=== PATIENT | male | born 1975 | race Caucasian/White ===

== ENCOUNTER 2016-10-18 14:34 | Emergency (ER) | payer OTHER ==
[2016-10-18 14:58] VITALS: BP 157/71; PULSE 62; RESP 18; TEMP 98.5
--- NOTE | 2016-10-18 15:25 | ED ---
General Adult HPI - General Chief complaint: Recheck/Abnormal Lab/Rx Stated complaint: Sutures bleeding Time Seen by Provider: 10/18/16 14:59 Source: patient, RN notes reviewed Mode of arrival: ambulatory Limitations: no limitations - History of Present Illness Initial comments: Patient 41-year-old male who presents emergency room today needing a reevaluation of a surgery to the left forearm. He does admit that he had a fistula for dialysis in this arm that was recently removed just 2 days ago through [facility]. He states that they're worried about possible infection at the time. He states he did go to [facility] yesterday to have the site checked because there was some bleeding coming from one of the incisions. He states they did talk to the surgeon and checked him there eventually sending him home to follow back up with the surgeon. Patient states that he woke up this morning and noticed that there was some blood on the gauze that was wrapped up over the area. There is a total of 4 incisions any believes it is coming from the one most medial and proximal. He states he believes he was made hit this or rubbed it on something when he was sleeping. Patient states is not bleeding currently. He denies any other change of the wound. Denies any change in the color or size. Denies any change in pain. Denies any other complaints. Patient denies any recent fever, chills, shortness of breath, chest pain, back pain, abdominal pain, nausea or vomiting, numbness or tingling, dysuria or hematuria, constipation or diarrhea, headaches or visual changes, or any other complaints. - Related Data Allergies Allergy/AdvReac Type Severity Reaction Status Date / Time prochlorperazine Allergy Unknown Verified 10/18/16 14:59 [From Compazine] Childhood Sulfa (Sulfonamide Allergy Unknown Verified 10/18/16 14:59 Antibiotics) Childhood Review of Systems ROS Statement: Those systems with pertinent positive or pertinent negative responses have been documented in the HPI. ROS Other: All systems not noted in ROS Statement are negative. Past Medical History Past Medical History: Renal Disease Additional Past Medical History / Comment(s): colitis History of Any Multi-Drug Resistant Organisms: None Reported Additional Past Surgical History / Comment(s): fistula for dialysis/ removed kidney transplant Past Psychological History: Depression Smoking Status: Current every day smoker Past Alcohol Use History: None Reported, Occasional Past Drug Use History: None Reported General Exam - General Exam Comments Initial Comments: General: The patient is awake and alert, in no distress, and does not appear acutely ill. Eye: Pupils are equal, round and reactive to light, extra-ocular movements are intact. No nystagmus. There is normal conjunctiva bilaterally. No signs of icterus. Ears, nose, mouth and throat: There are moist mucous membranes and no oral lesions. Neck: The neck is supple, there is no tenderness or JVD. Cardiovascular: There is a regular rate and rhythm. No murmur, rub or gallop is appreciated. Respiratory: Lungs are clear to auscultation, respirations are non-labored, breath sounds are equal. No wheezes, stridor, rales, or rhonchi. Musculoskeletal: Normal ROM, no tenderness. Strength 5/5. Sensation intact. Pulses equal bilaterally 2+. Neurological: A&O x 3. CN II-XII intact, There are no obvious motor or sensory deficits. Coordination appears grossly intact. Speech is normal. Skin: Patient has had 4 incisions to the volar aspect of the left arm. All appear to be healing well there is no redness or erythema no sign of infection. There is no active bleeding. There was some dry blood which was cleaned with saline here. Psychiatric: Cooperative, appropriate mood & affect, normal judgment. Limitations: no limitations Course Vital Signs 10/18/16 14:52 Temperature 98.5 F Pulse Rate 62 Respiratory 18 Rate Blood Pressure 157/71 O2 Sat by Pulse 99 Oximetry Medical Decision Making - Medical Decision Making Patient denies any other changes other than some bleeding that occurred overnight. There is no active bleeding at this time. There is no color change to the incision sites. Patient denies any change in pain. His vitals are stable. At this time patient will be discharged home and advised to follow-up with surgeon tomorrow. Advised return here to emergency room for symptoms increase or worsen or for any other concerns. Disposition Clinical Impression: Postop check Disposition: HOME SELF-CARE Condition: Good Instructions: Care For Your Stitches (ED) Additional Instructions: Please follow-up with your surgeon over the next 1-2 days. Please return to emergency room if any symptoms increase worsen or for any other concerns as discussed. Referrals: Andrew Norwood MD [Primary Care Provider] - 1-2 days Time of Disposition: 15:24
== END 2016-10-18 15:35 | disposition home or self-care (01) ==
LOC: EC 14:34
DX: Z48.01 Encounter for change or removal of surgical wound dressing (principal); F17.200 Nicotine dependence, unspecified, uncomplicated; Z88.8 Allergy status to other drugs, medicaments and biological substances; Z88.2 Allergy status to sulfonamides
CPT/HCPCS: 99283

== ENCOUNTER 2016-12-10 14:47 | Emergency (ER) | payer OTHER ==
[2016-12-10 15:05] VITALS: BP 158/78; PULSE 66; RESP 20; TEMP 99
--- NOTE | 2016-12-10 15:47 | ED ---
General Adult HPI - General Chief complaint: Skin/Abscess/Foreign Body Stated complaint: Rash Time Seen by Provider: 12/10/16 15:15 Source: patient Mode of arrival: ambulatory Limitations: no limitations - History of Present Illness Initial comments: This is a 41-year-old male who presents to emergency department today with complaint of rash. Patient states a blister developed in his mouth last week. He was seen by a provider 2 days ago who prescribed him Acyclovir, Keflex, and Nystatin. Patient states the rash has been getting worse and the medications don't seem to be helping. It has now spread to his chin and right side of the face. He reports the entire right side of his face is painful. Denies fever, chills, chest pain, shortness of breath, abdominal pain, nausea, vomiting, dysuria, hematuria, numbess, tingling, headache or vision changes. - Related Data Home Medications Medication Instructions Recorded Confirmed Albuterol Inhaler [Ventolin Hfa 2 puff INHALATION RT-Q6H PRN 10/18/16 10/18/16 Inhaler] Aspirin EC [Ecotrin Low Dose] 81 mg PO DAILY 10/18/16 10/18/16 Atenolol [Tenormin] 50 mg PO DAILY 10/18/16 10/18/16 Diazepam [Valium] 5 mg PO DAILY 10/18/16 10/18/16 HYDROcodone/APAP 5-325MG [[place] 1 tab PO Q6HR PRN 10/18/16 10/18/16 5-325] Loratadine [Claritin] 10 mg PO DAILY 10/18/16 10/18/16 Magnesium Oxide [Mag-Ox] 400 mg PO BID 10/18/16 10/18/16 Mometasone/Formoterol [Dulera 200 1 puff INHALATION RT-BID 10/18/16 10/18/16 Mcg/5 Mcg Inhaler] Multivitamins, Thera [Multivitamin 1 tab PO DAILY 10/18/16 10/18/16 (formulary)] Mycophenolate Sodium Dr [Myfortic] 360 mg PO TID 10/18/16 10/18/16 Omeprazole 40 mg PO DAILY 10/18/16 10/18/16 Primidone [Mysoline] 150 mg PO BID 10/18/16 10/18/16 Sertraline [Zoloft] 75 mg PO DAILY 10/18/16 10/18/16 Tacrolimus [Prograf] 5 mg PO Q12H 10/18/16 10/18/16 Topiramate [Topamax] 25 mg PO BID 10/18/16 10/18/16 Topiramate [Topamax] 50 mg PO BID 10/18/16 10/18/16 methylPREDNISolone [Medrol] 2 mg PO DAILY 10/18/16 10/18/16 predniSONE 2 mg PO DAILY 10/18/16 10/18/16 Previous Rx's Medication Instructions Recorded Hydrocodone/Acetaminophen [[place] 1 tab PO Q4HR PRN #15 tab 12/10/16 5-325] Allergies Allergy/AdvReac Type Severity Reaction Status Date / Time prochlorperazine Allergy Unknown Verified 12/10/16 15:05 [From Compazine] Childhood Sulfa (Sulfonamide Allergy Unknown Verified 12/10/16 15:05 Antibiotics) Childhood Review of Systems ROS Statement: Those systems with pertinent positive or pertinent negative responses have been documented in the HPI. ROS Other: All systems not noted in ROS Statement are negative. Past Medical History Past Medical History: Renal Disease Additional Past Medical History / Comment(s): colitis History of Any Multi-Drug Resistant Organisms: None Reported Additional Past Surgical History / Comment(s): fistula for dialysis/ removed kidney transplant Past Psychological History: Depression Smoking Status: Current every day smoker Past Alcohol Use History: Occasional Past Drug Use History: None Reported General Exam - General Exam Comments Initial Comments: General: Awake and alert, well-developed; in no apparent distress. HEENT: Head atraumatic, normocephalic. Pupils are equal, round and reactive to light. Extraocular movements intact. Fluorescein stain of right eye revealed no abrasions or ulcers. Neck: Supple. Normal ROM. Cardiovascular: Regular rate and rhythm. No murmurs, rubs or gallops. Chest symmetrical. Respiratory: Lungs clear to auscultation bilaterally. No wheezes, rales or rhonchi. Normal respiratory efffort with no use of accessory muscles. Skin: [place], warm and dry. Yellow, honey-colored crusts along border of right lower lip and onto chin. Small erythematous fluid-filled vesicles surrounding right eye. One vesicle with overlying crust on right medial cheek. Neurological: Alert and oriented x3. CN II-XII grossly intact. Speech is fluent and answers are appropriate. No focal neuro deficits. Psychiatric: Normal mood and affect. No overt signs of depression or anxiety noted. Limitations: no limitations Course Vital Signs 12/10/16 15:01 Temperature 99.0 F Pulse Rate 66 Respiratory 20 Rate Blood Pressure 158/78 O2 Sat by Pulse 99 Oximetry Procedures - Procedures Initial comment: Fluorescein stain of right eye was performed. No abnormalities or abrasions visualized. Patient tolerated procedure well. Medical Decision Making - Medical Decision Making This case was discussed with attending physician, Dr. Jalloh who also evaluated the patient. Likely shingles with superinfection. Patient will be discharged home on the same medications, Acyclovir and Keflex. Patient was advised to follow-up with animal breeder. Patient is in agreement and voices understanding. All questions were answered. Disposition Clinical Impression: Shingles Disposition: HOME SELF-CARE Condition: Good Instructions: Shingles (ED) Additional Instructions: Please continue to take medications as prescribed. Follow-up with animal breeder within 1-2 days. Return to ED if symptoms should worsen or concerns arise. Prescriptions: Hydrocodone/Acetaminophen [[place] 5-325] 1 tab PO Q4HR PRN #15 tab PRN Reason: Pain Referrals: Andrew Norwood MD [Primary Care Provider] - 1-2 days Justine Lo MD [STAFF PHYSICIAN] - 1-2 days Time of Disposition: 15:47
== END 2016-12-10 16:00 | disposition home or self-care (01) ==
LOC: EC 14:47
DX: B02.9 Zoster without complications (principal); F32.9 Major depressive disorder, single episode, unspecified; F17.200 Nicotine dependence, unspecified, uncomplicated; Z88.2 Allergy status to sulfonamides; Z88.8 Allergy status to other drugs, medicaments and biological substances; Z79.82 Long term (current) use of aspirin; Z79.51 Long term (current) use of inhaled steroids; Z79.52 Long term (current) use of systemic steroids; Z79.899 Other long term (current) drug therapy
CPT/HCPCS: 99282

== ENCOUNTER 2018-01-02 23:10 | Observation (INO) | payer OTHER ==
[2018-01-02] MEDS ORDERED: hydrALAZINE HCL 20 MG/ML 1 ML VIAL IVP STA (23:38)
[2018-01-02 23:53] LABS: Basophils % (A) 0 %; Eosinophils # (A) 0.3 k/uL (0-0.7); Eosinophils % (A) 2 %; HGB 11.9 gm/dL (13.0-17.5); Lymphocytes % (A) 16 %; MCH 30.1 pg (25.0-35.0); MCHC 32.3 g/dL (31.0-37.0); MCV 93.3 fL (80.0-100.0); Mean Platelet Volume 7.3; Monocytes # (A) 0.8 k/uL (0-1.0); Monocytes % (A) 7 %; Neutrophils # (A) 9.3 k/uL (1.3-7.7); Neutrophils % (A) 74 %; Platelet Count 322 k/uL (150-450); RBC 3.96 m/uL (4.30-5.90); RDW 14.1 % (11.5-15.5); WBC 12.6 k/uL (3.8-10.6)
[2018-01-02] MEDS ORDERED: IPRATROPIUM-ALBUTEROL 3 ML NEB INHALATION STA (23:55)
--- NOTE | 2018-01-02 23:55 | ED ---
Chest Pain HPI - General Chief Complaint: Chest Pain Stated Complaint: High BP Time Seen by Provider: 01/02/18 23:21 Source: patient, family Mode of arrival: ambulatory Limitations: no limitations - History of Present Illness Initial Comments: Patient is a 42-year-old male with past medical history of hypertension, renal failure, multiple renal transplants that presents for chest pain. Patient states that this is been going on for the last few weeks and was initially intermittent but now constant. It feels like a left-sided sharp pain with radiation to the shoulder and neck. He denies any shortness of breath but has had slight coughing and feeling hot. He also denies any nausea/vomiting/ diarrhea and denies having any MIs in the past. He also states that his blood pressure normally ranges in the one teens but is now elevated. - Related Data Home Medications Medication Instructions Recorded Confirmed Albuterol Inhaler [Ventolin Hfa 2 puff INHALATION RT-Q6H PRN 10/18/16 01/02/18 Inhaler] Aspirin EC [Ecotrin Low Dose] 81 mg PO DAILY 10/18/16 01/02/18 Atenolol [Tenormin] 50 mg PO DAILY 10/18/16 01/02/18 Diazepam [Valium] 5 mg PO DAILY 10/18/16 01/02/18 HYDROcodone/APAP 5-325MG [[place] 1 tab PO Q6HR PRN 10/18/16 01/02/18 5-325] Loratadine [Claritin] 10 mg PO DAILY 10/18/16 01/02/18 Magnesium Oxide [Mag-Ox] 400 mg PO BID 10/18/16 01/02/18 Mometasone/Formoterol [Dulera 200 1 puff INHALATION RT-BID 10/18/16 01/02/18 Mcg/5 Mcg Inhaler] Multivitamins, Thera [Multivitamin 1 tab PO DAILY 10/18/16 01/02/18 (formulary)] Mycophenolate Sodium Dr [Myfortic] 360 mg PO TID 10/18/16 01/02/18 Omeprazole 40 mg PO DAILY 10/18/16 01/02/18 Primidone [Mysoline] 150 mg PO BID 10/18/16 01/02/18 Sertraline [Zoloft] 75 mg PO DAILY 10/18/16 01/02/18 Tacrolimus [Prograf] 5 mg PO Q12H 10/18/16 01/02/18 Topiramate [Topamax] 25 mg PO BID 10/18/16 01/02/18 Topiramate [Topamax] 50 mg PO BID 10/18/16 01/02/18 methylPREDNISolone [Medrol] 2 mg PO DAILY 10/18/16 01/02/18 predniSONE 2 mg PO DAILY 10/18/16 01/02/18 Previous Rx's Medication Instructions Recorded Hydrocodone/Acetaminophen [[place] 1 tab PO Q4HR PRN #15 tab 12/10/16 5-325] Allergies Allergy/AdvReac Type Severity Reaction Status Date / Time prochlorperazine Allergy Unknown Verified 01/02/18 23:17 [From Compazine] Childhood Sulfa (Sulfonamide Allergy Unknown Verified 01/02/18 23:17 Antibiotics) Childhood Review of Systems ROS Statement: Those systems with pertinent positive or pertinent negative responses have been documented in the HPI. Constitutional: Negative for chills, fatigue and fever. HENT: Negative for congestion. Respiratory: Negative for chest tightness, shortness of breath and wheezing. Positive for cough Cardiovascular: Positive for chest pain and negative for palpitations. Gastrointestinal: Negative for abdominal pain. Negative for abdominal distention , diarrhea, nausea and vomiting. Genitourinary: Negative for dysuria. Musculoskeletal: Negative for back pain, neck pain and neck stiffness. Skin: Negative for color change. Neurological: Negative for dizziness, speech difficulty, weakness and light- headedness. Psychiatric/Behavioral: Negative for agitation and confusion. Negative for anxiety ROS Other: All systems not noted in ROS Statement are negative. EKG Findings - EKG Comments: EKG Findings:: EKG shows sinus bradycardia with a rate of 58 bpm, UT interval 160, QRS duration 90, QTC 406. There are no significant ST depressions or elevations. Past Medical History Past Medical History: Renal Disease Additional Past Medical History / Comment(s): colitis History of Any Multi-Drug Resistant Organisms: None Reported Additional Past Surgical History / Comment(s): fistula for dialysis/ removed kidney transplant Past Psychological History: Depression Smoking Status: Former smoker Past Alcohol Use History: Occasional Past Drug Use History: None Reported General Exam - General Exam Comments Initial Comments: Constitutional: Pt is oriented to person, place, and time. Pt appears well- developed and well-nourished. No distress. HENT: Head: Normocephalic and atraumatic. Eyes: EOM are normal. Neck: Normal range of motion. Neck supple. Cardiovascular: Normal rate, regular rhythm, S1 normal, S2 normal and normal heart sounds. Exam reveals no gallop and no friction rub. No murmur heard. Pulmonary/Chest: Effort normal.. No tachypnea and no bradypnea. No respiratory distress. Wheezes noted in all lung guevara. No rales noted. Abdominal: Soft. Bowel sounds are normal. Pt exhibits no shifting dullness, no distension, no pulsatile liver, no fluid wave, no abdominal bruit and no ascites. There is no tenderness. There is no rigidity, no rebound, no guarding, no tenderness at McBurney's point and negative Broussard's sign. Musculoskeletal: Normal range of motion. Neurological: Pt is alert and oriented to person, place, and time. No cranial nerve deficit. Skin: Skin is warm and dry. No rash noted. Pt is not diaphoretic. No erythema. No pallor. Psychiatric: Pt has a normal mood and affect. Pt behavior is normal. Thought content normal. Limitations: no limitations Course Vital Signs 01/02/18 01/03/18 01/03/18 23:13 00:01 00:15 Temperature 97.8 F Pulse Rate 64 61 67 Respiratory 20 18 Rate Blood Pressure 185/96 165/90 O2 Sat by Pulse 100 99 Oximetry 01/03/18 00:23 Temperature Pulse Rate 78 Respiratory Rate Blood Pressure O2 Sat by Pulse Oximetry Chest Pain MDM - MDM Laboratory studies showed that there was mild leukocytosis at 12.6 which is likely secondary to chronic steroid usage. Chest x-ray was also negative for infiltrate and creatinine was measured at 1.88 with a GFR of 43. However, patient's records do not include significant prior studies and therefore is unclear whether this is truly a baseline. Because of the patient's complex medical history and solely having 1 kidney, it is determined that he should stay in observation for continued treatment. Patient stated that his chest pain has significantly improved upon arrival and was not having shortness of breath. Explained all labs and diagnostic test results and that we will admit patient to hospital. Pt is agreeable to plan and case has been discussed with Dr. Coley and they agree to accept the pt. Disposition Clinical Impression: Chest pain Disposition: ADMITTED IP TO THIS HOSP Condition: Good Instructions: Chest Pain (ED) Referrals: Andrew Norwood MD [Primary Care Provider] - 1-2 days Decision to Admit Reason: Admit from EC Decision Date: 01/03/18 Decision Time: 01:00
[2018-01-03 00:02] LABS: Albumin 4.2 g/dL (3.5-5.0); Magnesium 1.8 mg/dL (1.6-2.3); Potassium 4.1 mmol/L (3.5-5.1); Total Bilirubin 0.7 mg/dL (0.2-1.3); Total Protein 6.7 g/dL (6.3-8.2)
[2018-01-03 00:04] LABS: INR 1.1 (<1.2); Prothrombin Time 10.8 sec (9.0-12.0)
[2018-01-03] MEDS ORDERED: hydrALAZINE HCL 20 MG/ML 1 ML VIAL IVP STA (00:06)
--- NOTE | 2018-01-03 00:18 | XR ---
EXAMINATION TYPE: XR chest 2V DATE OF EXAM: 01/02/2018 COMPARISON: NONE HISTORY: Chest pain TECHNIQUE: Frontal and lateral views of the chest are obtained. FINDINGS: Heart and mediastinum are normal. Lungs are clear. Diaphragm is normal. Bony thorax is int act. There are chest leads. IMPRESSION: Normal chest
[2018-01-03] MEDS ORDERED: NALOXONE 0.4 MG/ML 1 ML VIAL IV PRN (00:55)
[2018-01-03] MEDS ORDERED: ASPIRIN 81 MG PO STA (01:00)
[2018-01-03] MEDS: SODIUM CHLORIDE 0.9% 1,000 ML IV SCH ×2 (01:14→15:41)
[2018-01-03 01:31] LABS: Appearance,Urine Clear (Clear); Bilirubin,Urine Negative (Negative); Blood,Urine Negative (Negative); Color,Urine Light Yellow; Glucose,Urine (UA) Negative (Negative); Ketones,Urine Negative (Negative); Leukocyte Esterase,Urine Negative (Negative); Nitrite,Urine Negative (Negative); PH, Urine 6.5 (5.0-8.0); Protein,Urine 1+ (Negative); RBC,Urine 2 /hpf (0-5); Specific Gravity,Urine 1.005 (1.001-1.035); Urobilinogen,Urine <2.0 mg/dL (<2.0); WBC,Urine 1 /hpf (0-5)
[2018-01-03] MEDS ORDERED: ALBUTEROL NEBULIZED 2.5 MG/3 ML INHALATION PRN (06:00)
--- NOTE | 2018-01-03 06:49 | P.HPIM ---
History of Present Illness H&P Date: 01/03/18 Chief Complaint: Chest pain 42-year-old male with history of renal failure status post multiple renal transplants. Patient presented with complaint of chest pain, described as left-sided sharp pain radiating to the shoulder and neck this has been going on for a week or 2 initially was intermittent and now more constant. He describes it as 6 out of 10 in severity increases with movement. He denies any injuries, he denies any associated nausea vomiting dizziness lightheadedness or palpitations or sweating. But if he does report slight coughing nonproductive and he is not sure about fever but he does feel warm sometimes Patient denies any GI bleeding denies any changes in his urinary habits. Medication constellation performed with the patient. Patient indicated that recently he had elevated creatinine at 2 but normally his baseline is around 1.5. Currently patient still reporting some left-sided chest discomfort Review of Systems Pertinent positives as noted in HPI. All other systems were reviewed and are negative Past Medical History Past Medical History: Renal Disease Additional Past Medical History / Comment(s): colitis History of Any Multi-Drug Resistant Organisms: None Reported Additional Past Surgical History / Comment(s): fistula for dialysis/ removed kidney transplant Past Psychological History: Depression Smoking Status: Former smoker Past Alcohol Use History: Occasional Past Drug Use History: None Reported Medications and Allergies Home Medications Medication Instructions Recorded Confirmed Type Albuterol Inhaler [Ventolin Hfa 2 puff INHALATION RT-Q6H PRN 10/18/16 01/02/18 History Inhaler] Aspirin EC [Ecotrin Low Dose] 81 mg PO DAILY 10/18/16 01/02/18 History Atenolol [Tenormin] 50 mg PO DAILY 10/18/16 01/02/18 History Diazepam [Valium] 5 mg PO DAILY 10/18/16 01/02/18 History HYDROcodone/APAP 5-325MG [[place] 1 tab PO Q6HR PRN 10/18/16 01/02/18 History 5-325] Loratadine [Claritin] 10 mg PO DAILY 10/18/16 01/02/18 History Magnesium Oxide [Mag-Ox] 400 mg PO BID 10/18/16 01/02/18 History Mometasone/Formoterol [Dulera 200 1 puff INHALATION RT-BID 10/18/16 01/02/18 History Mcg/5 Mcg Inhaler] Multivitamins, Thera [Multivitamin 1 tab PO DAILY 10/18/16 01/02/18 History (formulary)] Mycophenolate Sodium Dr [Myfortic] 360 mg PO TID 10/18/16 01/02/18 History Omeprazole 40 mg PO DAILY 10/18/16 01/02/18 History Primidone [Mysoline] 150 mg PO BID 10/18/16 01/02/18 History Sertraline [Zoloft] 75 mg PO DAILY 10/18/16 01/02/18 History Tacrolimus [Prograf] 5 mg PO Q12H 10/18/16 01/02/18 History Topiramate [Topamax] 25 mg PO BID 10/18/16 01/02/18 History Topiramate [Topamax] 50 mg PO BID 10/18/16 01/02/18 History methylPREDNISolone [Medrol] 2 mg PO DAILY 10/18/16 01/02/18 History predniSONE 2 mg PO DAILY 10/18/16 01/02/18 History Hydrocodone/Acetaminophen [[place] 1 tab PO Q4HR PRN #15 tab 12/10/16 01/02/18 Rx 5-325] Allergies Allergy/AdvReac Type Severity Reaction Status Date / Time prochlorperazine Allergy Unknown Verified 01/02/18 23:17 [From Compazine] Childhood Sulfa (Sulfonamide Allergy Unknown Verified 01/02/18 23:17 Antibiotics) Childhood Physical Exam Vitals: Vital Signs Temp Pulse Resp BP Pulse Ox 01/03/18 05:00 56 L 18 148/88 99 01/03/18 04:30 57 L 15 148/84 100 01/03/18 04:00 64 17 149/85 100 01/03/18 03:00 59 L 12 140/89 100 01/03/18 02:00 69 12 153/93 100 01/03/18 01:30 65 14 160/84 100 01/03/18 01:14 66 18 153/87 100 01/03/18 00:23 78 01/03/18 00:15 67 01/03/18 00:01 61 18 165/90 99 01/02/18 23:13 97.8 F 64 20 185/96 100 Intake and Output 01/02/18 01/02/18 01/03/18 14:59 22:59 06:59 Other: Weight 74.843 kg Constitutional: No acute distress, conversant, pleasant Eyes: Anicteric sclerae, moist conjunctiva, no lid-lag Pupils equal round reactive to light ENMT: NC/AT Oropharynx clear, no erythema, or exudates Neck: Supple, FROM, no masses, or JVD No carotid bruits No thyromegaly Lungs: Good breath sounds bilaterally with some scattered end expiratory wheezes Clear to percussion Normal respiratory effort, no accessory muscle use Pain is reproducible by palpation of the anterior left chest Cardiovascular: Heart regular in rate and rhythm, No murmurs, gallops, or rubs No peripheral edema Abdominal: Soft Nontender, no guarding, rebound or rigidity Abdomen moving with respiration Normoactive bowel sounds No hepatomegaly, No splenomegaly No palpable mass No abdominal wall hernia noted Skin: Normal temperature, tone, texture, turgor No induration No subcutaneous nodules No rash, lesions No ulcers Extremities: No digital cyanosis No clubbing Pedal pulses intact and symmetrical Radial pulses intact and symmetrical No calf tenderness Psychiatric: Alert and oriented to person, place and time Appropriate affect fair judgment Neuro Muscles Strength 5/5 in all 4 extremities Sensation to light touch grossly present throughout Cranial nerves II-XII grossly intact No focal sensory deficits Lymphatics: no palpable cervical or supraclavicular , or inguinal lymph nodes Results CBC & Chem 7: 01/02/18 23:40 01/02/18 23:40 Labs: Abnormal Lab Results - Last 24 Hours (Table) 01/02/18 01/02/18 01/03/18 Range/Units 23:40 23:40 01:15 WBC 12.6 H (3.8-10.6) k/uL RBC 3.96 L (4.30-5.90) m/uL Hgb 11.9 L (13.0-17.5) gm/dL Hct 37.0 L (39.0-53.0) % Neutrophils # 9.3 H (1.3-7.7) k/uL BUN 26 H (9-20) mg/dL Creatinine 1.88 H (0.66-1.25) mg/dL Glucose 133 H (74-99) mg/dL Urine Protein 1+ H (Negative) Assessment and Plan Assessment: 42-year-old male with history of renal failure status post kidney transplant multiple times, admitted under observation with anticipated length of stay less than 48 hours due to left-sided chest pain to rule out acute coronary syndrome and follow-up on labs due to elevated creatinine without having a baseline Plan: Left-sided chest pain, with atypical features, unlikely to be cardiac in origin Cardiac monitoring Trending cardiac enzymes Pain control Supplemental oxygen as needed Hypertensive urgency poorly controlled at home Continue with cardiac 25 mg twice a day Continue to monitor pending further blood pressure readings Acute allograft renal failure Elevated creatinine from baseline of 1.5 Avoid nephrotoxic meds Anemia of chronic disease Patient denies any evidence of bleeding History of asthma currently stable Continue with DuoNeb's when necessary DVT prophylaxis Heparin subcu 3 times a day Surrogate decision-maker: Patient's Sr. CODE STATUS: Full code Discussed with: Patient, ER, RN Anticipated discharge: <48hours Anticipated discharge place: Home A total of 55 minutes was spent on the care of this complex patient more than 50 % of the time was spent in counseling and care coordination.
[2018-01-03] MEDS: SYMBICORT 160-4.5 MCG INHALER INHALATION SCH ×2 (07:07→19:18)
[2018-01-03] MEDS ORDERED: TACROLIMUS 1 MG CAP PO SCH (09:00)
[2018-01-03] MEDS ORDERED: ATENOLOL 50 MG TAB PO SCH (09:00)
[2018-01-03] MEDS ORDERED: DIAZEPAM 5 MG TAB PO PRN (09:00)
[2018-01-03] MEDS ORDERED: MYCOPHENOLATE SODIUM DR 180 MG TABLET.DR PO SCH (09:00)
[2018-01-03] MEDS ORDERED: TOPIRAMATE 25 MG TAB PO SCH (09:00)
[2018-01-03] MEDS ORDERED: METHYLPREDNISOLONE 2 MG PO SCH (09:00)
[2018-01-03] MEDS: PRIMIDONE 50 MG TAB PO SCH ×2 (09:11→21:55)
[2018-01-03] MEDS: MYCOPHENOLATE SODIUM DR 180 MG TABLET.DR PO SCH ×2 (09:11→21:54)
[2018-01-03] MEDS: CARVEDILOL 12.5 MG TAB PO SCH ×2 (09:11→17:05)
[2018-01-03] MEDS: TACROLIMUS 1 MG CAP PO SCH ×4 (09:11→21:55)
[2018-01-03] MEDS: predniSONE 1 MG TAB PO SCH (09:12)
[2018-01-03] MEDS: PANTOPRAZOLE 40 MG TABLET PO SCH (09:12)
[2018-01-03] MEDS: TOPIRAMATE 25 MG TAB PO SCH ×2 (09:12→21:55)
[2018-01-03] MEDS: ASPIRIN 81 MG PO SCH (09:12)
[2018-01-03] MEDS: SERTRALINE 50 MG TAB PO SCH (09:12)
[2018-01-03] MEDS: LORATADINE 10 MG TAB PO SCH (09:13)
[2018-01-03] MEDS: HEPARIN SODIUM,PORCINE 5,000 UNIT/ML 1 ML VIAL SQ SCH ×2 (09:14→15:41)
[2018-01-03 10:39] LABS: Calcium 9.7 mg/dL (8.4-10.2); Potassium 4.3 mmol/L (3.5-5.1)
--- NOTE | 2018-01-03 10:55 | P.PN ---
Progress Note - Text Progress Note Date: 01/03/18 42-year-old male with PMH of renal failure status post kidney transplant, hypertension and asthma presents the ED for chest pain. Patient reports a similar episode in [place] in May. He underwent a cardiac workup at that time, states stress test was negative. Patient states that he initially started experiencing this chest pain 2-3 weeks ago while he was walking and cleaning. He has been having this pain on and off for the past few years. Pain is intermittent, lasts for a few hours and occurs daily. Pain is left- sided, occasionally radiating to the left neck. Patient describes the pain as pressure-like and dull. Of note, patient has a history of renal failure with multiple kidney transplants. He sees a director maternal child at [facility]. Patient reports his baseline creatinine being around 1.3-1.6. Patient also reports nausea for the last 2 days without vomiting. Patient is alert and oriented 3. His heart is regular rate and rhythm. Normal S1-S2. No murmurs rubs or gallops. There is some tenderness over the left chest wall. There are some mild expiratory wheezes bilaterally. There is no lower extremity edema. DP 2+ bilaterally. 1. Chest pain: MSK in nature but risk factors for ACS. Trop < 0.012, EKG showing sinus bradycardia with no ST or T wave changes. CXR negative. BNP 886, unknown baseline. Start ASA 81 mg PO QD. Telemetry monitoring. Trend Trop/EKG to r/o ACS. FU Echocardiogram. FU Cardiology eval 2. FINN on CKD: Cr 1.88 to 1.56. Patient reports baseline to be 1.3 to 1.6. Continue Mycophenolate 720 mg PO BID, Prednisone 2 mg PO QD, Tacrolimus 1 mg PO QHS, 2 mg PO QD. Continue NS at 75 cc/h. Daily BMP. 3. Asthma: Albuterol neb PRN for SOB. Symbicort 2 puff BID. 4. Hypertension: BP 157/85. Coreg 25 mg PO BID. Monitor vitals, adjust medications as necessary. 5. DVT/GI Prophylaxis: Protonix 40 mg PO QD.
[2018-01-03 15:22] VITALS: BMI 22.7
[2018-01-04] MEDS: HEPARIN SODIUM,PORCINE 5,000 UNIT/ML 1 ML VIAL SQ SCH ×3 (00:36→17:16)
[2018-01-04] MEDS ORDERED: HYDROcodone/APAP 5-325MG 1 EACH TAB PO STA ×2 (03:34→11:31)
[2018-01-04 07:15] VITALS: RESP 16
[2018-01-04] MEDS: SYMBICORT 160-4.5 MCG INHALER INHALATION SCH (07:26)
[2018-01-04] MEDS: SERTRALINE 50 MG TAB PO SCH (08:20)
[2018-01-04] MEDS: MYCOPHENOLATE SODIUM DR 180 MG TABLET.DR PO SCH (08:21)
[2018-01-04] MEDS: CARVEDILOL 12.5 MG TAB PO SCH (08:21)
[2018-01-04] MEDS: PRIMIDONE 50 MG TAB PO SCH (08:22)
[2018-01-04] MEDS: TOPIRAMATE 25 MG TAB PO SCH (08:22)
[2018-01-04] MEDS: LORATADINE 10 MG TAB PO SCH (08:22)
[2018-01-04] MEDS: predniSONE 1 MG TAB PO SCH (08:22)
[2018-01-04] MEDS: ASPIRIN 81 MG PO SCH (08:22)
[2018-01-04] MEDS: PANTOPRAZOLE 40 MG TABLET PO SCH (08:22)
[2018-01-04] MEDS: TACROLIMUS 1 MG CAP PO SCH (08:23)
[2018-01-04] MEDS ORDERED: amLODIPine 10 MG TAB PO SCH (09:00)
--- NOTE | 2018-01-04 10:03 | ECHOF ---
Referral Reason:Chest pain MEASUREMENTS -------- HEIGHT: 177.8 cm WEIGHT: 71.7 kg BP: 161/80 RVIDd: 2.2 cm (< 3.3) IVSd: 1.1 cm (0.6 - 1.1) LVIDd: 5.8 cm (3.9 - 5.3) LVPWd: 1.1 cm (0.6 - 1.1) IVSs: 1.8 cm LVIDs: 3.9 cm LVPWs: 1.7 cm LA Diam: 3.7 cm (2.7 - 3.8) LAESV Index (A-L): 33.10 ml/m Ao Diam: 3.3 cm (2.0 - 3.7) AV Cusp: 2.2 cm (1.5 - 2.6) EPSS: 0.9 cm MV E Stephen: 1.26 m/s MV DecT: 209 ms MV A Stephen: 0.82 m/s MV E/A Ratio: 1.55 AR PHT: 720 ms MV EF SLOPE: 91.30 mm/s (70 - 150) MV EXCURSION: 1.70 cm (> 18.000) FINDINGS -------- Sinus rhythm. This was a technically good study. The left ventricular size is normal. There is borderline concentric left ventricular hypertrophy. Overall left ventricular systolic function is normal with, an EF between 60 - 65 %. The right ventricle is normal in size. LA is midly dilated 29-33ml/m2. The right atrium is normal in size. The aortic valve is trileaflet and appears structurally normal. There is moderate aortic regurgitat ion. The mitral valve is normal. The tricuspid valve appears structurally normal. Trace/mild (physiologic) pulmonic regurgitation. The aortic root size is normal. Normal inferior vena cava with normal inspiratory collapse consistent with estimated right atrial pre ssure of 5 mmHg. There is no pericardial effusion. CONCLUSIONS -------- 1. Sinus rhythm. 2. This was a technically good study. 3. The left ventricular size is normal. 4. There is borderline concentric left ventricular hypertrophy. 5. Overall left ventricular systolic function is normal with, an EF between 60 - 65 %. 6. The right ventricle is normal in size. 7. LA is midly dilated 29-33ml/m2. 8. The right atrium is normal in size. 9. The aortic valve is trileaflet and appears structurally normal. 10. There is moderate aortic regurgitation. 11. The mitral valve is normal. 12. The tricuspid valve appears structurally normal. 13. Trace/mild (physiologic) pulmonic regurgitation. 14. The aortic root size is normal. 15. Normal inferior vena cava with normal inspiratory collapse consistent with estimated right atrial pressure of 5 mmHg. 16. There is no pericardial effusion. ENVIRONMENTAL ENGINEERING MANAGER: MANFRED Bhardwaj
--- NOTE | 2018-01-04 10:38 | P.CRDCN ---
History of Present Illness History of present illness: Mr. Gay is a pleasant 42-year-old male past medial history significant for hypertension, chronic kidney disease and renal transplant 13 years ago. He follows with Nephrology out of [facility]. He denies history of coronary artery disease, dyslipidemia or diabetes mellitus. We have been asked to see him in consultation for chest pain. He states over the last week or so he has been following with his PCP due to elevated blood pressures. He currently takes coreg 25 mg BID. He has been checking his blood pressure at home and it has been consistently elevated over 180 systolic. He became concerned since he works alone overnight and didn't want anything to happen while he was alone at work. On arrival blood pressure 185/96 and 165/90. He was given IV hydralazine in the ED. Blood pressure this morning 144/81. He also complains of a dull stabbing pain and pressure in the left precordial region usually comes at rest. He has been experiencing this intermittently for years. Last stress test was Spring 2017 in [facility]. His discomfort is associated with dizziness, shortness of breath, nausea, vomiting, diaphoresis and palpitations. EKG reveals sinus mechanism with no acute ST or T-wave abnormalities. Chest xray negative for an acute cardiopulmonary process. Laboratory data reviewed, WBC 12.6, hemoglobin 11.9, platelets 322, sodium 137, potassium 4.3, creatinine admission 1.88 this morning 1.56, magnesium 1.8, cardiac enzymes negative 2, NT proBNP 886. Current cardiac medications include carvedilol 25 mg twice a day. He also takes Prograf, prednisone and primidone. At the time of my exam: CONSTITUTIONAL: Denies fever. Denies chills. EYES: Denies blurred vision. Denies vision changes. Denies eye pain. EARS, NOSE, MOUTH & THROAT: Denies headache. Denies sore throat. Denies ear pain. CARDIOVASCULAR: Denies chest pain. Denies shortness of breath. Denies orthopnea. Denies PND. Denies palpitations. RESPIRATORY: Denies cough. GASTROINTESTINAL: Denies abdominal pain. Denies diarrhea. Denies constipation. Denies nausea. Denies vomiting. MUSCULOSKELETAL: Denies myalgias. INTEGUMENTARY: Denies pruitis. Denies rash. NEUROLOGIC: Denies numbness. Denies tingling. Denies weakness. PSYCHIATRIC: Denies anxiety. Denies depression. ENDOCRINE: Denies fatigue. Denies weight change. Denies polydipsia. Denies polyurina. GENITOURINARY: Denies burning, hematuria or urgency with micturation. HEMATOLOGIC: Denies history of anemia. Denies bleeding. Blood pressure 144/81 heart rate 73 afebrile maintaining oxygen saturation on room air GENERAL: This is a 42-year-old male in no apparent distress at the time of my examination. HEENT: Head is atraumatic, normocephalic. Pupils are equal, round. Sclerae anicteric. Conjunctivae are clear. Mucous membranes of the mouth are moist. Neck is supple. There is no jugular venous distention. No carotid bruit is heard. LUNGS: Clear to auscultation no wheezes, rales or rhonchi. No chest wall tenderness is noted on palpation or with deep breathing. HEART: Regular rate and rhythm without murmurs, rubs or gallops. S1 and S2 heard. ABDOMEN: Soft, nontender. Bowel sounds are heard. No organomegaly noted. EXTREMITIES: No evidence of peripheral edema and no calf tenderness noted. VASCULAR: Radial and dorsalis pedis pulses palpated, no evidence of clubbing. NEUROLOGIC: Patient is awake, alert and oriented x3. ASSESSMENT Hypertension, uncontrolled. Chronic chest pain, atypical for angina. An acute coronary event has been ruled out. Chronic kidney disease s/p renal transplant Leukocytosis, chronically on steroids. PLAN An acute coronary event has been ruled out. Add amlodipine 10 mg daily. Check lipid panel. Obtain records from recent stress test. Feed the patient and increase activity. If amlodipine controls blood pressure he may go home and see his primary care physician. Thank you kindly for this consultation. Nurse Practitioner note has been reviewed, I agree with a documented findings and plan of care. Patient was seen and examined. Past Medical History Past Medical History: Hypertension, Renal Disease Additional Past Medical History / Comment(s): colitis, 2 kidney transplants History of Any Multi-Drug Resistant Organisms: None Reported Past Surgical History: Tonsillectomy Additional Past Surgical History / Comment(s): fistula for dialysis/ removed kidney transplant Past Anesthesia/Blood Transfusion Reactions: No Reported Reaction Past Psychological History: Depression Additional Psychological History / Comment(s): pt stated has not been on zoloft for one year. Smoking Status: Former smoker Past Alcohol Use History: Occasional Additional Past Alcohol Use History / Comment(s): ocassional drink Past Drug Use History: None Reported - Past Family History Mother Family Medical History: GERD/Reflux Additional Family Medical History / Comment(s): biological grandfather of heart issues (unsure of what) Medications and Allergies Home Medications Medication Instructions Recorded Confirmed Type Tacrolimus [Prograf] 2 mg PO Q12H 10/18/16 01/03/18 History Carvedilol [Coreg] 25 mg PO BID 01/03/18 01/03/18 History Mycophenolate Sodium [Mycophenolic 360 mg PO QID 01/03/18 01/03/18 History Acid] Primidone [Mysoline] 150 mg PO DAILY 01/03/18 01/03/18 History methylPREDNISolone [Medrol] 2 mg PO DAILY 01/03/18 01/03/18 History predniSONE 2 mg PO DAILY 01/03/18 01/03/18 History Allergies Allergy/AdvReac Type Severity Reaction Status Date / Time prochlorperazine Allergy Unknown Verified 01/03/18 15:23 [From Compazine] Sulfa (Sulfonamide Allergy Anaphylaxis Verified 01/03/18 15:23 Antibiotics) Physical Exam Vitals: Vital Signs Temp Pulse Pulse Resp BP BP Pulse Ox 01/04/18 07:14 98.3 F 73 16 144/81 98 01/04/18 03:47 18 01/04/18 03:25 97.8 F 68 18 161/80 97 01/04/18 00:00 18 01/03/18 23:10 98.3 F 69 18 155/84 98 01/03/18 20:00 18 01/03/18 19:25 97.8 F 74 18 124/70 96 01/03/18 14:30 98.1 F 68 18 161/87 100 01/03/18 14:19 73 18 158/92 98 01/03/18 12:30 163/92 01/03/18 12:00 163/93 99 01/03/18 11:30 163/96 01/03/18 10:00 73 30 H 171/97 96 01/03/18 09:00 75 20 164/87 96 01/03/18 08:30 72 15 165/96 96 Intake and Output 01/03/18 01/04/18 01/04/18 22:59 06:59 14:59 Other: # Voids 1 2 Weight 72 kg Results 01/02/18 23:40 01/03/18 09:46 Cardiac Enzymes 01/03/18 Range/Units 09:46 Troponin I <0.012 (0.000-0.034) ng/mL Comprehensive Metabolic Panel 01/03/18 Range/Units 09:46 Sodium 137 (137-145) mmol/L Potassium 4.3 (3.5-5.1) mmol/L Chloride 109 H (98-107) mmol/L Carbon Dioxide 24 (22-30) mmol/L BUN 23 H (9-20) mg/dL Creatinine 1.56 H (0.66-1.25) mg/dL Glucose 103 H (74-99) mg/dL Calcium 9.7 (8.4-10.2) mg/dL Current Medications Generic Name Dose Route Start Last Admin Trade Name Freq PRN Reason Stop Dose Admin Albuterol Sulfate 2.5 mg 01/03/18 06:00 Ventolin Nebulized INHALATION RT-Q6H PRN Shortness Of Breath Or Wheezing Aspirin 81 mg 01/03/18 09:00 01/03/18 09:12 Aspirin PO 81 mg DAILY MALGORZATA Administration Budesonide/Formoterol Fumarate 2 puff 01/03/18 08:00 01/04/18 07:26 Symbicort 160-4.5 Mcg Inhaler INHALATION Not Given RT-BID MALGORZATA Carvedilol 25 mg 01/03/18 07:30 01/03/18 17:05 Coreg PO 25 mg BID-W/MEALS MALGORZATA Administration Heparin Sodium (Porcine) 5,000 unit 01/03/18 08:00 01/04/18 00:36 Heparin SQ 5,000 unit Q8HR MALGORZATA Administration Sodium Chloride 1,000 mls @ 75 mls/hr 01/03/18 01:00 01/03/18 15:41 Saline 0.9% IV 75 mls/hr .[id number] MALGORZATA Administration Loratadine 10 mg 01/03/18 09:00 01/03/18 09:13 Claritin PO 10 mg DAILY MALGORZATA Administration Mycophenolate Sodium 720 mg 01/03/18 09:00 01/03/18 21:54 Myfortic PO 720 mg BID MALGORZATA Administration Naloxone HCl 0.2 mg 01/03/18 00:55 Narcan IV Q2M PRN Opioid Reversal Pantoprazole Sodium 40 mg 01/03/18 07:30 01/03/18 09:12 Protonix PO 40 mg DAILY@0730 MALGORZATA Administration Prednisone 2 mg 01/03/18 09:00 01/03/18 09:12 PO 2 mg DAILY MALGORZATA Administration Primidone 150 mg 01/03/18 09:00 01/03/18 21:55 Mysoline PO 150 mg BID MALGORZATA Administration Sertraline HCl 75 mg 01/03/18 09:00 01/03/18 09:12 Zoloft PO 75 mg DAILY MALGORZATA Administration Tacrolimus 1 mg 01/03/18 21:00 01/03/18 21:55 Prograf PO 1 mg HS MALGORZATA Administration Tacrolimus 2 mg 01/03/18 09:00 01/03/18 09:13 Prograf PO 2 mg DAILY MALGORZATA Administration Topiramate 75 mg 01/03/18 09:00 01/03/18 21:55 Topamax PO 75 mg BID MALGORZATA Administration Intake and Output 01/03/18 01/04/18 01/04/18 22:59 06:59 14:59 Other: # Voids 1 2 Weight 72 kg 01/02/18 23:40 01/03/18 09:46
[2018-01-04 10:42] LABS: Calcium 9.6 mg/dL (8.4-10.2); Potassium 3.9 mmol/L (3.5-5.1)
[2018-01-04 15:42] VITALS: BP 151/80; PULSE 63; TEMP 98.6
--- NOTE | 2018-01-04 18:40 | P.DS ---
Providers Date of admission: 01/03/18 01:00 Expected date of discharge: 01/04/18 Attending physician: Tana Cloey MD Consults: 01/03/18 09:55 Consult Physician Routine Consulting Provider: Javy Garcia Consult Reason/Comments: Chest pain Do you want consulting provider notified?: Yes Primary care physician: [facility] Course: Patient is a 42-year-old male with past medical history of hypertension, CKD, status post renal transplant 13 years ago, who presented to the ED for left sided chest pain. The patient denied any injuries, associated shortness of breath, nausea, vomiting, diaphoresis, lightheadedness, or palpitations. The pain was nonradiating, 6/10 in severity, and nonexertional. The pain was somewhat reproducible upon palpation. The patient was subsequently placed under observation for evaluation of chest pain. Troponin was negative 3. Cardiology was consulted and noted that since the patient had a negative stress test in the spring, and that the troponins were negative, an acute coronary event had been ruled out and that the patient may be discharged home with no further workup needed. Physical Examination General: Awake, alert, in no acute distress HEENT: NC/AT, anicteric sclerae, moist conjunctiva, no lid-lag, PERRLA, oropharynx clear, no erythema, exudates Cardiovascular: S1/S2 wnl, no murmurs, rubs, or gallops Lungs: Clear to auscultation, normal respiratory effort, no accessory muscle use Abdominal: Soft, nontender, non-distended, no guarding, rebound, or rigidity, normoactive bowel sounds Skin: Warm, dry Extremities: No edema or contractures Psychiatric: Alert and oriented to person, place and time, appropriate affect, Intact judgment Neuro: CN II-XI grossly intact, sensation to light touch grossly present throughout, no focal sensory deficits Discharge diagnosis:Musculoskeletal chest pain, Uncontrolled HTN, CKD s/p renal transplant, Leukocytosis A total of 45 minutes of time were spent preparing this complex discharge summary. Patient Condition at Discharge: Good Plan - Discharge Summary Discharge Rx Participant: Yes New Discharge Prescriptions: New amLODIPine [Norvasc] 10 mg PO DAILY #30 tab Aspirin 81 mg PO DAILY #30 chew Loratadine [Claritin] 10 mg PO DAILY tab Continue Tacrolimus [Prograf] 2 mg PO Q12H Mycophenolate Sodium [Mycophenolic Acid] 360 mg PO QID Carvedilol [Coreg] 25 mg PO BID methylPREDNISolone [Medrol] 2 mg PO DAILY predniSONE 2 mg PO DAILY Primidone [Mysoline] 150 mg PO DAILY Discharge Medication List Tacrolimus [Prograf] 2 mg PO Q12H 10/18/16 [History] Carvedilol [Coreg] 25 mg PO BID 01/03/18 [History] Mycophenolate Sodium [Mycophenolic Acid] 360 mg PO QID 01/03/18 [History] Primidone [Mysoline] 150 mg PO DAILY 01/03/18 [History] methylPREDNISolone [Medrol] 2 mg PO DAILY 01/03/18 [History] predniSONE 2 mg PO DAILY 01/03/18 [History] Aspirin 81 mg PO DAILY #30 chew 01/04/18 [Rx] Loratadine [Claritin] 10 mg PO DAILY tab 01/04/18 [Rx] amLODIPine [Norvasc] 10 mg PO DAILY #30 tab 01/04/18 [Rx] Follow up Appointment(s)/Referral(s): Andrew Norwood MD [Primary Care Provider] - 1-2 days Patient Instructions/Handouts: Chest Pain (ED) Discharge Disposition: HOME SELF-CARE
== END 2018-01-04 17:15 | disposition home or self-care (01) ==
LOC: EC 23:10 → 1SOBS 01-03 01:00
PROVIDERS: ADMIT Internal Medicine; ATTEND Internal Medicine
DX: R07.89 Other chest pain (principal); I16.0 Hypertensive urgency; I12.9 Hypertensive chronic kidney disease with stage 1 through stage 4 chronic kidney disease, or unspecified chronic kidney disease; G89.29 Other chronic pain; J45.909 Unspecified asthma, uncomplicated; N18.9 Chronic kidney disease, unspecified; N17.9 Acute kidney failure, unspecified; T86.19 Other complication of kidney transplant; T38.0X5A Adverse effect of glucocorticoids and synthetic analogues, initial encounter; D72.829 Elevated white blood cell count, unspecified; F32.9 Major depressive disorder, single episode, unspecified; D63.8 Anemia in other chronic diseases classified elsewhere; Z88.2 Allergy status to sulfonamides; Z88.8 Allergy status to other drugs, medicaments and biological substances; Z79.899 Other long term (current) drug therapy; Z79.52 Long term (current) use of systemic steroids; Z87.19 Personal history of other diseases of the digestive system; Z87.891 Personal history of nicotine dependence; Z83.79 Family history of other diseases of the digestive system; Z82.49 Family history of ischemic heart disease and other diseases of the circulatory system
CPT/HCPCS: 96372 ×3; 96374; 99285; 36415; 94640; 93005; 93306; 83880; 80061; 80053; 80048 ×2; 83735; 84484 ×3; 85025; 85610; 85730; 81001; 71046; G0378 ×2; J0360; J1644 ×2; J7507 ×2; J7518 ×2; J7512 ×2

== ENCOUNTER 2018-04-07 10:34 | Emergency (ER) | payer OTHER ==
[2018-04-07 10:54] VITALS: PULSE 71; TEMP 98.5
[2018-04-07] MEDS ORDERED: ONDANSETRON 4 MG/2 ML VIAL IVP STA (10:57)
[2018-04-07] MEDS ORDERED: PANTOPRAZOLE 40 MG/10 ML VIAL IVP STA (10:57)
[2018-04-07] MEDS ORDERED: SODIUM CHLORIDE 0.9% 1,000 ML IV STA (10:57)
--- NOTE | 2018-04-07 11:45 | ED ---
Abdominal Pain HPI - General Chief Complaint: Abdominal Pain Stated Complaint: nausea, vomiting Time Seen by Provider: 04/07/18 10:56 Source: patient, RN notes reviewed Mode of arrival: ambulatory Limitations: no limitations - History of Present Illness Initial Comments: 43-year-old male presents emergency Department chief complaint ongoing nausea vomiting headache. Patient states he is continuously feel worse and worse. Patient does have a history of renal transplant states he has seen his PCP and his hadn't completely ultrasound of his abdomen with no acute findings. Patient states is labwork is unchanged. He states he can getting down. He's been vomiting repetitively. He does complain that he has a worse headache of his life. Though this is been ongoing for one. Patient had no prior imaging. Patient denies fever, chills, back pain, hematuria. He has noticed some dysuria. Patient reports no chest pain or shortness of breath. - Related Data Home Medications Medication Instructions Recorded Confirmed methylPREDNISolone [Medrol] 2 mg PO DAILY 01/03/18 04/07/18 Albuterol Inhaler [Ventolin Hfa 2 puff INHALATION RT-BID 04/07/18 04/07/18 Inhaler] Carvedilol [Coreg] 25 mg PO BID 04/07/18 04/07/18 Cholecalciferol (Vitamin D3) 10,000 unit PO DAILY 04/07/18 04/07/18 [Vitamin D3] Lisinopril [Zestril] 10 mg PO DAILY 04/07/18 04/07/18 Multivitamins, Thera [Multivitamin 1 tab PO DAILY 04/07/18 04/07/18 (formulary)] Mycophenolate Sodium [Mycophenolic 720 mg PO BID 04/07/18 04/07/18 Acid] Tacrolimus [Prograf] 2 mg PO DAILY 04/07/18 04/07/18 Tacrolimus [Prograf] 3 mg PO DAILY 04/07/18 04/07/18 Previous Rx's Medication Instructions Recorded Loratadine [Claritin] 10 mg PO DAILY tab 01/04/18 amLODIPine [Norvasc] 10 mg PO DAILY #30 tab 01/04/18 Allergies Allergy/AdvReac Type Severity Reaction Status Date / Time prochlorperazine Allergy Unknown Verified 04/07/18 11:07 [From Compazine] Sulfa (Sulfonamide Allergy Anaphylaxis Verified 04/07/18 11:07 Antibiotics) Review of Systems ROS Statement: Those systems with pertinent positive or pertinent negative responses have been documented in the HPI. ROS Other: All systems not noted in ROS Statement are negative. Past Medical History Past Medical History: Hypertension, Renal Disease Additional Past Medical History / Comment(s): colitis, 2 kidney transplants History of Any Multi-Drug Resistant Organisms: None Reported Past Surgical History: Tonsillectomy Additional Past Surgical History / Comment(s): fistula for dialysis/ removed kidney transplant Past Anesthesia/Blood Transfusion Reactions: No Reported Reaction Past Psychological History: Depression Smoking Status: Former smoker Past Alcohol Use History: Occasional Past Drug Use History: None Reported - Past Family History Mother Family Medical History: GERD/Reflux Additional Family Medical History / Comment(s): biological grandfather of heart issues (unsure of what) General Exam Limitations: no limitations General appearance: alert, in no apparent distress Head exam: Present: atraumatic, normocephalic, normal inspection Eye exam: Present: normal appearance, PERRL, EOMI. Absent: scleral icterus, conjunctival injection, periorbital swelling ENT exam: Present: normal exam, normal oropharynx, mucous membranes moist Neck exam: Present: normal inspection. Absent: tenderness, meningismus, lymphadenopathy Respiratory exam: Present: normal lung sounds bilaterally. Absent: respiratory distress, wheezes, rales, rhonchi, stridor Cardiovascular Exam: Present: regular rate, normal rhythm, normal heart sounds. Absent: systolic murmur, diastolic murmur, rubs, gallop, clicks GI/Abdominal exam: Present: soft, tenderness, normal bowel sounds, other (Old surgical scar noted, swelling in right lower where transplant is at). Absent: distended, guarding, rebound, rigid Back exam: Absent: CVA tenderness (R), CVA tenderness (L) Skin exam: Present: warm, dry, intact, normal color. Absent: rash Course Vital Signs 04/07/18 10:52 Temperature 98.5 F Pulse Rate 71 Respiratory 16 Rate Blood Pressure 142/76 O2 Sat by Pulse 100 Oximetry Medical Decision Making - Medical Decision Making 43-year-old male presents emergency from for not feeling well, headache abdominal discomfort. CT shows evidence of possible rejection of his kidney. Patient will be transferred to [facility]. Accepting physician . Patient be given Rocephin at this time - Lab Data Result diagrams: 04/07/18 11:20 04/07/18 11:20 Lab Results 04/07/18 04/07/18 04/07/18 Range/Units 11:20 11:20 11:20 WBC 8.3 (3.8-10.6) k/uL RBC 3.39 L (4.30-5.90) m/uL Hgb 10.1 L (13.0-17.5) gm/dL Hct 31.8 L (39.0-53.0) % MCV 93.6 (80.0-100.0) fL MCH 29.8 (25.0-35.0) pg MCHC 31.8 (31.0-37.0) g/dL RDW 14.1 (11.5-15.5) % Plt Count 283 (150-450) k/uL Neutrophils % 75 % Lymphocytes % 15 % Monocytes % 5 % Eosinophils % 2 % Basophils % 0 % Neutrophils # 6.2 (1.3-7.7) k/uL Lymphocytes # 1.3 (1.0-4.8) k/uL Monocytes # 0.4 (0-1.0) k/uL Eosinophils # 0.1 (0-0.7) k/uL Basophils # 0.0 (0-0.2) k/uL PT 10.9 (9.0-12.0) sec INR 1.0 (<1.2) Sodium 140 (137-145) mmol/L Potassium 4.7 (3.5-5.1) mmol/L Chloride 112 H (98-107) mmol/L Carbon Dioxide 22 (22-30) mmol/L Anion Gap 6 mmol/L BUN 24 H (9-20) mg/dL Creatinine 1.77 H (0.66-1.25) mg/dL Est GFR (CKD-EPI)AfAm 53 (>60 ml/min/1.73 sqM) Est GFR (CKD-EPI)NonAf 46 (>60 ml/min/1.73 sqM) Glucose 117 H (74-99) mg/dL Calcium 10.1 (8.4-10.2) mg/dL Total Bilirubin 0.4 (0.2-1.3) mg/dL AST 16 L (17-59) U/L ALT 17 L (21-72) U/L Alkaline Phosphatase 77 (38-126) U/L Total Protein 6.3 (6.3-8.2) g/dL Albumin 3.8 (3.5-5.0) g/dL Amylase 111 H (30-110) U/L Lipase 456 H (23-300) U/L Urine Color Urine Appearance (Clear) Urine pH (5.0-8.0) Ur Specific [place] (1.001-1.035) Urine Protein (Negative) Urine Glucose (UA) (Negative) Urine Ketones (Negative) Urine Blood (Negative) Urine Nitrite (Negative) Urine Bilirubin (Negative) Urine Urobilinogen (<2.0) mg/dL Ur Leukocyte Esterase (Negative) Urine RBC (0-5) /hpf Urine WBC (0-5) /hpf Urine Mucus (None) /hpf 04/07/18 Range/Units 13:00 WBC (3.8-10.6) k/uL RBC (4.30-5.90) m/uL Hgb (13.0-17.5) gm/dL Hct (39.0-53.0) % MCV (80.0-100.0) fL MCH (25.0-35.0) pg MCHC (31.0-37.0) g/dL RDW (11.5-15.5) % Plt Count (150-450) k/uL Neutrophils % % Lymphocytes % % Monocytes % % Eosinophils % % Basophils % % Neutrophils # (1.3-7.7) k/uL Lymphocytes # (1.0-4.8) k/uL Monocytes # (0-1.0) k/uL Eosinophils # (0-0.7) k/uL Basophils # (0-0.2) k/uL PT (9.0-12.0) sec INR (<1.2) Sodium (137-145) mmol/L Potassium (3.5-5.1) mmol/L Chloride (98-107) mmol/L Carbon Dioxide (22-30) mmol/L Anion Gap mmol/L BUN (9-20) mg/dL Creatinine (0.66-1.25) mg/dL Est GFR (CKD-EPI)AfAm (>60 ml/min/1.73 sqM) Est GFR (CKD-EPI)NonAf (>60 ml/min/1.73 sqM) Glucose (74-99) mg/dL Calcium (8.4-10.2) mg/dL Total Bilirubin (0.2-1.3) mg/dL AST (17-59) U/L ALT (21-72) U/L Alkaline Phosphatase (38-126) U/L Total Protein (6.3-8.2) g/dL Albumin (3.5-5.0) g/dL Amylase (30-110) U/L Lipase (23-300) U/L Urine Color Light Yellow Urine Appearance Clear (Clear) Urine pH 7.0 (5.0-8.0) Ur Specific [place] 1.009 (1.001-1.035) Urine Protein 2+ H (Negative) Urine Glucose (UA) Negative (Negative) Urine Ketones Negative (Negative) Urine Blood Negative (Negative) Urine Nitrite Negative (Negative) Urine Bilirubin Negative (Negative) Urine Urobilinogen <2.0 (<2.0) mg/dL Ur Leukocyte Esterase Moderate H (Negative) Urine RBC 5 (0-5) /hpf Urine WBC 45 H (0-5) /hpf Urine Mucus Rare H (None) /hpf Disposition Clinical Impression: Headache, Abdominal pain, Transplant rejection, Pyelonephritis Disposition: OTHER INSTITUTION NOT DEFINED Condition: Stable Referrals: Andrew Norwood MD [Primary Care Provider] - 1-2 days - Out of Hospital Transfer - Req. Specs Out of Hospital Transfer - Requested Specifics: Other Non-Acute ([facility] )
[2018-04-07 11:56] LABS: Basophils % (A) 0 %; Eosinophils # (A) 0.1 k/uL (0-0.7); Eosinophils % (A) 2 %; HCT 31.8 % (39.0-53.0); HGB 10.1 gm/dL (13.0-17.5); Lymphocytes # (A) 1.3 k/uL (1.0-4.8); Lymphocytes % (A) 15 %; MCH 29.8 pg (25.0-35.0); MCHC 31.8 g/dL (31.0-37.0); MCV 93.6 fL (80.0-100.0); Mean Platelet Volume 7.1; Monocytes # (A) 0.4 k/uL (0-1.0); Monocytes % (A) 5 %; Neutrophils # (A) 6.2 k/uL (1.3-7.7); Neutrophils % (A) 75 %; Platelet Count 283 k/uL (150-450); RBC 3.39 m/uL (4.30-5.90); RDW 14.1 % (11.5-15.5); WBC 8.3 k/uL (3.8-10.6)
[2018-04-07 12:02] LABS: Prothrombin Time 10.9 sec (9.0-12.0)
[2018-04-07 12:06] LABS: Albumin 3.8 g/dL (3.5-5.0); Calcium 10.1 mg/dL (8.4-10.2); Potassium 4.7 mmol/L (3.5-5.1); Total Bilirubin 0.4 mg/dL (0.2-1.3); Total Protein 6.3 g/dL (6.3-8.2)
--- NOTE | 2018-04-07 12:44 | CT ---
EXAMINATION TYPE: CT brain wo con DATE OF EXAM: 04/07/2018 COMPARISON: None INDICATION: Continuous MOSER for one month DLP: 1044.4 mGycm, Automated exposure control for dose reduction was used. CONTRAST: None CT of the brain is performed utilizing 3 mm thick sections through the posterior fossa and 3 mm thick sections through the remaining calvarium. Study is performed within 24 hours of arrival to the hosp ital. No abnormal hyperdensity is present to suggest an acute intracranial hemorrhage. No mass lesion is evident. No acute infarcts are evident. Periventricular white matter changes are present likely on the basis o f chronic white matter ischemic change. This is patchy distribution. Small lacunar infarct may be in the subcortical white matter of the left trilobar region. Ventricles and sulci are appropriate for the patient age. Paranasal sinuses and mastoid air cells within the [id number] are clear. IMPRESSIONS: 1. Patchy to confluent periventricular chronic appearing white matter ischemic type changes. 2. Old left subcortical lacunar infarct. 3. No acute process evident.
--- NOTE | 2018-04-07 12:59 | CT ---
EXAMINATION TYPE: CT abdomen pelvis wo con DATE OF EXAM: 04/07/2018 COMPARISON: None HISTORY: 43-year-old male pain, history of dual renal transplant CT DLP: 365.6 mGycm. Automated exposure control for dose reduction was used. TECHNIQUE: Contiguous axial scanning of the abdomen and pelvis without IV contrast. Coronal and sagit danuta reconstructions performed. FINDINGS: Heart normal size without pericardial effusion. Blood flow density is slightly diminished compared to the myocardium. Lung bases clear without pleural effusion. Liver limits of normal in size at 17.5 cm. Otherwise, noncontrast appearance of the liver, gallbladder, right adrenal gland, spleen, and pancrea s shows no gross abnormality. Assessment limited due to lack of IV contrast. Surgical clips in the left renal fossa. There are 3 areas of nodularity here measuring up to 1.2 cm, refer to axial image 27, 28, and 38 coronal images 45, 48, and 49. Additional nodularity of the right adrenal gland measuring 1.4 cm and attenuation of 19 [place] un its which is indeterminate. No dilated small bowel or free air. Normal appendix. Some liquid stool seen throughout the colon. There are 3 enlarged lymph nodes in the right region measuring up to 2.0 cm short axis, refer to mckayla nal image 33. The right renal fossa is empty. The right lower quadrant kidney appears somewhat edematous and is somewhat prominent in size at 12.1 cm. No varinder hydronephrosis. Mild circumferential bladder wall thickening. Prostate gland measures 4.4 cm wide. Small to moderate pelvic ascites is noted. There is sigmoid diverticulosis but no definite pericolonic inflammatory soila nge. 1.1 cm mid pelvic nodule, axial image 69. Bones: Right L5 hemisacralization. Degenerative disc disease of above with left paracentral herniatio n at L4-L5. Degenerative disc disease visualized lower thoracic spine. IMPRESSION: 1. Right lower quadrant renal transplant appears edematous. Correlate for possible etiologies such a s rejection or pyelonephritis. 2. Mild circumferential bladder wall thickening could represent cystitis or chronic bladder wall hyp ertrophy. 3. Liquid stool throughout the colon could represent enteritis. 4. Surgical clips in the left renal fossa. There are 3 areas of nodularity here measuring up to 1.2 cm. Correlate as to the reason for patient's nephrectomy. If there is a prior oncologic history invol ving the left kidney, these areas of nodularity should be closely followed to exclude local recurrenc e. 5. Right inguinal lymphadenopathy measuring up to 2.0 cm. Correlate with physical exam findings. Eit her clinical follow-up or tissue sampling depending on clinical suspicion for inflammatory versus ev plastic etiology. 6. 1.4 cm nodularity of the left adrenal gland is indeterminate but probably represents an adrenal a denoma. 6 month follow-up can be performed. 7. Mild to moderate pelvic ascites likely reactive to either impression point (1) or (3), above. 8. Sigmoid diverticulosis without convincing evidence for acute diverticulitis. 9. A 1.1 cm nodule in the mid pelvis probably corresponds to a diverticulum. This can also be reasse ssed on a follow-up exam. 10. Query anemia given slightly low density of the blood pool.
[2018-04-07 13:35] LABS: Appearance,Urine Clear (Clear); Bilirubin,Urine Negative (Negative); Blood,Urine Negative (Negative); Color,Urine Light Yellow; Glucose,Urine (UA) Negative (Negative); Ketones,Urine Negative (Negative); Leukocyte Esterase,Urine Moderate (Negative); Mucus,Urine Rare /hpf; Nitrite,Urine Negative (Negative); Protein,Urine 2+ (Negative); RBC,Urine 5 /hpf (0-5); Specific Gravity,Urine 1.009 (1.001-1.035); Urobilinogen,Urine <2.0 mg/dL (<2.0); WBC,Urine 45 /hpf (0-5)
[2018-04-07 14:32] VITALS: RESP 18
[2018-04-07] MEDS ORDERED: SODIUM CHLORIDE 0.9% 1,000 ML IV SCH (14:45)
[2018-04-07] MEDS ORDERED: HYDROcodone/APAP 5-325MG 1 EACH TAB PO STA (15:17)
[2018-04-07 20:02] VITALS: BP 137/88
== END 2018-04-07 20:05 | disposition other institution (70) ==
LOC: EC 10:34
DX: T86.11 Kidney transplant rejection (principal); N12 Tubulo-interstitial nephritis, not specified as acute or chronic; R51 Headache; I12.0 Hypertensive chronic kidney disease with stage 5 chronic kidney disease or end stage renal disease; N18.6 End stage renal disease; Z99.2 Dependence on renal dialysis; Z90.5 Acquired absence of kidney; Z87.891 Personal history of nicotine dependence; Z87.19 Personal history of other diseases of the digestive system; Z79.51 Long term (current) use of inhaled steroids; Z79.899 Other long term (current) drug therapy; Z88.2 Allergy status to sulfonamides; Z88.8 Allergy status to other drugs, medicaments and biological substances
CPT/HCPCS: 36415; 83690; 82150; 85025; 80053; 85610; 81001; 70450; 74176; 99285; 96365; 96375 ×2; 96361 ×8; J2405; J0696; C9113

== ENCOUNTER 2018-10-19 14:01 | Emergency (ER) | payer OTHER, BC ==
[2018-10-19 14:12] VITALS: RESP 16; TEMP 97
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
[2018-10-19] MEDS ORDERED: IBUPROFEN 600 MG TAB PO STA (14:31)
[2018-10-19] MEDS ORDERED: ACETAMINOPHEN TAB 325 MG TAB PO STA (14:44)
[2018-10-19 14:58] VITALS: PULSE 70
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
[2018-10-19] MEDS ORDERED: ACET/COD 300 MG/30 MG STARTER PACK 6 TAB BTL PO STA (16:13)
[2018-10-19 16:57] VITALS: BP 128/90
== END 2018-10-19 16:51 | disposition home or self-care (01) ==
LOC: EC 14:01
DX: S02.2XXA Fracture of nasal bones, initial encounter for closed fracture (principal); I10 Essential (primary) hypertension; Z79.899 Other long term (current) drug therapy; Z88.2 Allergy status to sulfonamides; Z88.8 Allergy status to other drugs, medicaments and biological substances; Z87.891 Personal history of nicotine dependence; Z94.0 Kidney transplant status; Z99.2 Dependence on renal dialysis; V89.2XXA Person injured in unspecified motor-vehicle accident, traffic, initial encounter; Y92.410 Unspecified street and highway as the place of occurrence of the external cause
CPT/HCPCS: 70450; 70486; 72125; 99284

== ENCOUNTER 2019-04-15 18:55 | Emergency (ER) | payer BC ==
[2019-04-15 19:20] VITALS: BP 130/72; PULSE 69; RESP 20; TEMP 98.3
[2019-04-15] MEDS ORDERED: KETOROLAC 30 MG/ML 1 ML VIAL IM STA (19:33)
[2019-04-15] MEDS ORDERED: MORPHINE SULFATE 4 MG/ML SYRINGE IM STA (19:36)
--- NOTE | 2019-04-15 19:38 | ED ---
General Adult HPI - General Chief complaint: Extremity Injury, Lower Stated complaint: lt ankle swelling Time Seen by Provider: 04/15/19 19:24 Source: patient, RN notes reviewed Mode of arrival: ambulatory Limitations: no limitations - History of Present Illness Initial comments: 44-year-old male with a past medical history of colitis, kidney transplant presents to the emergency department for a chief complaint of left ankle pain and swelling. Patient states this started to be painful on Thursday and started to swell 2 days ago. States it is painful to walk on. Patient states he has had pain in his left ankle before but has never smoked been swollen. She states it is painful to walk on the left ankle but has been ambulating all day at work. Denies fevers or chills. She does not on blood thinners. Does admit to some pain in the posterior left calf.Patient has no other complaints at this time including shortness of breath, chest pain, abdominal pain, nausea or vomiting, headache, or visual changes. - Related Data Home Medications Medication Instructions Recorded Confirmed Carvedilol [Coreg] 25 mg PO BID 04/07/18 10/19/18 Lisinopril [Zestril] 10 mg PO DAILY 04/07/18 10/19/18 Multivitamins, Thera [Multivitamin 1 tab PO DAILY 04/07/18 10/19/18 (formulary)] Mycophenolate Sodium [Mycophenolic 360 mg PO QID 04/07/18 10/19/18 Acid] Tacrolimus [Prograf] 2 mg PO BID 04/07/18 10/19/18 methylPREDNISolone [Medrol] 2 mg PO DAILY 10/19/18 10/19/18 Previous Rx's Medication Instructions Recorded amLODIPine [Norvasc] 10 mg PO DAILY #30 tab 01/04/18 Allergies Allergy/AdvReac Type Severity Reaction Status Date / Time prochlorperazine Allergy Unknown Verified 04/15/19 19:20 [From Compazine] Sulfa (Sulfonamide Allergy Anaphylaxis Verified 04/15/19 19:20 Antibiotics) Review of Systems ROS Statement: Those systems with pertinent positive or pertinent negative responses have been documented in the HPI. ROS Other: All systems not noted in ROS Statement are negative. Past Medical History Past Medical History: Hypertension, Renal Disease Additional Past Medical History / Comment(s): colitis, 2 kidney transplants History of Any Multi-Drug Resistant Organisms: None Reported Past Surgical History: Tonsillectomy Additional Past Surgical History / Comment(s): fistula for dialysis/ removed kidney transplant Past Anesthesia/Blood Transfusion Reactions: No Reported Reaction Past Psychological History: Depression Smoking Status: Former smoker Past Alcohol Use History: Occasional Past Drug Use History: None Reported - Past Family History Mother Family Medical History: GERD/Reflux Additional Family Medical History / Comment(s): biological grandfather of heart issues (unsure of what) General Exam Limitations: no limitations General appearance: alert, in no apparent distress Head exam: Present: atraumatic, normocephalic, normal inspection Eye exam: Present: normal appearance, PERRL, EOMI. Absent: scleral icterus, conjunctival injection, periorbital swelling ENT exam: Present: normal exam, mucous membranes moist Neck exam: Present: normal inspection, full ROM. Absent: tenderness, meningismus, lymphadenopathy Respiratory exam: Present: normal lung sounds bilaterally. Absent: respiratory distress, wheezes, rales, rhonchi, stridor Cardiovascular Exam: Present: regular rate, normal rhythm, normal heart sounds. Absent: systolic murmur, diastolic murmur, rubs, gallop, clicks GI/Abdominal exam: Present: soft, normal bowel sounds. Absent: distended, tenderness, guarding, rebound, rigid Extremities exam: Present: full ROM (Full range of motion of the left ankle), tenderness (tenderness noted to the medial malleolus and left calf.), normal capillary refill (cap refill < 2 seconds, DP pulse 2+ in RLE), other (patient has mild Left circumferential ankle edema without erythema or increased warmth.) Course Vital Signs 04/15/19 19:18 Temperature 98.3 F Pulse Rate 69 Respiratory 20 Rate Blood Pressure 130/72 O2 Sat by Pulse 99 Oximetry Medical Decision Making - Medical Decision Making Pt presents for left ankle swelling and pain. Patient has had pain on and off his ankle for quite some time however has not had swelling. There is no erythema or increased warmth. No evidence of infection. Patient is able to bear weight on the left ankle. Full range motion of the left ankle. Ultrasound was obtained which shows no DVT in the left leg. 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 No fracture seen. Could be related the patient's pain. I discussed using Tylenol 3 for pain. Patient cannot take Motrin. I discussed following up with orthopedics in one to 2 days. Discussed returning here visiting worsening symptoms.I discussed this case with attending Dr. Figueroa who agrees with this assessment and treatment plan. Also reviewed XR results Disposition Clinical Impression: Ankle pain, left Disposition: HOME SELF-CARE Condition: Good Instructions (If sedation given, give patient instructions): Ankle Sprain (ED) Additional Instructions: Please take Tylenol [address] or operate machinery while taking this. Follow-up with orthopedics in one to 2 days. Return to the emergency department if you have any worsening symptoms. Is patient prescribed a controlled substance at d/c from ED?: No Referrals: Andrew Norwood MD [Primary Care Provider] - 1-2 days Ramiro Jones DO [Doctor of Osteopathic Medicine] - 1-2 days Time of Disposition: 21:49
--- NOTE | 2019-04-15 19:56 | XR ---
EXAMINATION TYPE: XR ankle complete LT DATE OF EXAM: 04/15/2019 COMPARISON: NONE HISTORY: Ankle pain TECHNIQUE: 3 views FINDINGS: Ankle mortise is anatomic. There is mild sclerosis and osteochondral defect in the medial d ome of the talus that measures 6 x 3 mm. Joint spaces are fairly normal. 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 No acute fracture seen.
[2019-04-15] MEDS ORDERED: HYDROcodone/APAP 5-325MG 1 EACH TAB PO STA (20:48)
--- NOTE | 2019-04-15 21:25 | US ---
EXAMINATION TYPE: US venous doppler duplex LE LT DATE OF EXAM: 04/15/2019 8:49 PM COMPARISON: NONE CLINICAL HISTORY: L ankle pain, swelling, no h/o injury. Left ankle pain and swelling x 1 day. No hx of DVT. Patient does not take blood thinners. SIDE PERFORMED: Left TECHNIQUE: The lower extremity deep venous system is examined utilizing real time linear array sonog danelle with graded compression, doppler sonography and color-flow sonography. VESSELS IMAGED: External Iliac Vein (EIV) Common Femoral Vein Deep Femoral Vein Greater Saphenous Vein * Femoral Vein Popliteal Vein Small Saphenous Vein * Proximal Calf Veins (* superficial vessels) Left Leg: No evidence of DVT at this time in veins imaged from prox calf veins to EIV. IMPRESSION: Negative exam. No deep vein thrombosis in the left leg.
[2019-04-15] MEDS ORDERED: ACET/COD 300 MG/30 MG STARTER PACK 6 TAB BTL PO STA (21:50)
== END 2019-04-15 22:02 | disposition home or self-care (01) ==
LOC: EC 18:55
DX: M25.572 Pain in left ankle and joints of left foot (principal); M93.272 Osteochondritis dissecans, left ankle and joints of left foot; I10 Essential (primary) hypertension; Z79.02 Long term (current) use of antithrombotics/antiplatelets; Z79.899 Other long term (current) drug therapy; Z88.2 Allergy status to sulfonamides; Z88.8 Allergy status to other drugs, medicaments and biological substances; Z94.0 Kidney transplant status; Z99.2 Dependence on renal dialysis; Z87.891 Personal history of nicotine dependence
CPT/HCPCS: 73610; 93971; 99284; 96372; J2270

== ENCOUNTER → 2019-04-20 | Outpatient (CLI) | payer BC ==
[2019-04-20 10:54] LABS: Basophils % (A) 0 %; Eosinophils # (A) 0.2 k/uL (0-0.7); Eosinophils % (A) 2 %; HCT 32.9 % (39.0-53.0); HGB 10.4 gm/dL (13.0-17.5); Hypochromasia Slight; Lymphocytes # (A) 1.4 k/uL (1.0-4.8); Lymphocytes % (A) 13 %; MCH 30.6 pg (25.0-35.0); MCHC 31.6 g/dL (31.0-37.0); MCV 96.7 fL (80.0-100.0); Mean Platelet Volume 7.6; Monocytes # (A) 0.6 k/uL (0-1.0); Monocytes % (A) 6 %; Neutrophils # (A) 8.3 k/uL (1.3-7.7); Neutrophils % (A) 77 %; Platelet Count 367 k/uL (150-450); RDW 13.1 % (11.5-15.5); WBC 10.8 k/uL (3.8-10.6)
[2019-04-20 11:55] LABS: Erythrocyte Sedimentation Rate 36 mm/hr (0-15)
[2019-04-20 17:40] LABS: C Reactive Protein 0.8 mg/dL (0.0-0.8)
== END | disposition home or self-care (01) ==
LOC: LABWHC1 10:10
PROVIDERS: ATTEND Orthopaedic Surgery
DX: M25.50 Pain in unspecified joint (principal)
CPT/HCPCS: 36415; 84550; 85025; 85652; 86140

== ENCOUNTER 2020-10-12 11:03 | Observation (INO) | payer BC ==
[2020-10-12] MEDS ORDERED: SODIUM CHLORIDE 0.9% 1,000 ML IV ONE (11:17)
--- NOTE | 2020-10-12 11:24 | ED ---
ENT HPI - General Chief complaint: ENT Stated complaint: trouble swallowing Source: patient, RN notes reviewed, old records reviewed Mode of arrival: ambulatory Limitations: no limitations - History of Present Illness Initial comments: 45-year-old white male, alert and oriented 4 and anxious, presents to the emergency room with 2 days of difficulty swallowing and some left-sided anterior neck swelling and tenderness. Patient denies any fevers, states for the past 2 days has had difficulty swallowing. He is able to handle his own secretions. He states that his voice is muffled and he is consistently trying to clear his throat. He states that he's also had a cough and increased nasal drainage. He does have multiple dental caries on the lower left side however there is no abscess. Denies any nausea, vomiting or diarrhea. He does have history of hypertension, kidney transplant 2 and colitis. He is a former smoker. MD complaint: sore throat -: days(s) (2) Location: throat Severity: moderate Severity scale (1-10): 5 Quality: aching Consistency: constant Improves with: none Worsens with: swallowing Associated Symptoms: cough, pain with swallowing - Related Data Home Medications Medication Instructions Recorded Confirmed Carvedilol [Coreg] 25 mg PO BID 04/07/18 10/12/20 Multivitamins, Thera [Multivitamin 1 tab PO DAILY 04/07/18 10/12/20 (formulary)] Mycophenolate Sodium [Mycophenolic 720 mg PO BID 04/07/18 10/12/20 Acid] Tacrolimus [Prograf] 2 mg PO DAILY 04/07/18 10/12/20 lisinopriL [Zestril] 10 mg PO DAILY 04/07/18 10/12/20 methylPREDNISolone [Medrol] 2 mg PO DAILY 10/19/18 10/12/20 Magnesium Oxide [Mag-Ox] 400 mg PO DAILY 10/12/20 10/12/20 Tacrolimus [Prograf] 1 mg PO HS 10/12/20 10/12/20 Previous Rx's Medication Instructions Recorded amLODIPine [Norvasc] 10 mg PO DAILY #30 tab 01/04/18 Allergies Allergy/AdvReac Type Severity Reaction Status Date / Time prochlorperazine Allergy Unknown Verified 10/12/20 11:54 [From Compazine] Sulfa (Sulfonamide Allergy Anaphylaxis Verified 10/12/20 11:54 Antibiotics) Review of Systems ROS Statement: Those systems with pertinent positive or pertinent negative responses have been documented in the HPI. ROS Other: All systems not noted in ROS Statement are negative. Past Medical History Past Medical History: Hypertension, Renal Disease Additional Past Medical History / Comment(s): colitis, 2 kidney transplants History of Any Multi-Drug Resistant Organisms: None Reported Past Surgical History: Tonsillectomy Additional Past Surgical History / Comment(s): fistula for dialysis/ removed kidney transplant Past Anesthesia/Blood Transfusion Reactions: No Reported Reaction Past Psychological History: Depression Smoking Status: Former smoker Past Alcohol Use History: Occasional Past Drug Use History: None Reported - Past Family History Mother Family Medical History: GERD/Reflux Additional Family Medical History / Comment(s): biological grandfather of heart issues (unsure of what) General Exam Limitations: no limitations General appearance: alert, in no apparent distress Head exam: Present: atraumatic, normocephalic, normal inspection Eye exam: Present: normal appearance, PERRL, EOMI. Absent: scleral icterus, conjunctival injection, periorbital swelling ENT exam: Present: normal exam, normal oropharynx, mucous membranes moist, other (Halitosis) Expanded Mouth exam: Present: muffled voice, tongue normal. Absent: drooling, trismus, laceration Teeth exam: Present: dental caries Throat exam: normal inspection. negative: tonsillar erythema, tonsillomegaly, t onsillar exudate, R peritonsillar mass, L peritonsillar mass Neck exam: Present: tenderness, full ROM, lymphadenopathy (Left-sided cervical lymphadenopathy). Absent: meningismus, thyromegaly Respiratory exam: Present: wheezes, rhonchi. Absent: respiratory distress, chest wall tenderness, accessory muscle use, decreased breath sounds, prolonged expiratory Cardiovascular Exam: Present: tachycardia GI/Abdominal exam: Present: soft, normal bowel sounds. Absent: distended, tenderness, guarding, rebound, rigid Extremities exam: Present: normal inspection, full ROM, normal capillary refill. Absent: tenderness, pedal edema, joint swelling, calf tenderness Back exam: Present: normal inspection, full ROM. Absent: tenderness, CVA tenderness (R), CVA tenderness (L), muscle spasm, paraspinal tenderness, vertebral tenderness, rash noted Neurological exam: Present: alert, oriented X3, CN II-XII intact Psychiatric exam: Present: normal affect, anxious Skin exam: Present: warm, dry, intact, normal color. Absent: rash Course Vital Signs 10/12/20 10/12/20 11:04 14:09 Temperature 98.0 F Pulse Rate 103 H 85 Respiratory 18 18 Rate Blood Pressure 131/73 114/77 O2 Sat by Pulse 98 98 Oximetry Medical Decision Making - Medical Decision Making Chest x-ray shows no focal pneumonia, pneumothorax or pleural effusion. There is mild hyperinflation but no acute process. CT of the neck without contrast was done as patient is a kidney transplant 2. It shows mildly enlarged lymph nodes in the upper neck particular the submandibular regions measuring 1.1 cm and 1.4 cm, noted as probably post inflammatory. WBC count is 13.4 with a neutrophil count of 9.4. BUN is 42 creatinine is 2.4 patient is a kidney transplant. Patient was started on antibiotics after blood cultures were done. There is no tonsillar exudate. Patient has been afebrile. He does endorse nausea and a decreased intake over the past 2 days. He will be admitted to the hospital. Case discussed with Dr. Jalloh who also examined patient. - Lab Data Result diagrams: 10/12/20 11:36 10/12/20 11:36 Lab Results 10/12/20 10/12/20 Range/Units 11:36 11:36 WBC 13.4 H (3.8-10.6) k/uL RBC 4.20 L (4.30-5.90) m/uL Hgb 12.9 L (13.0-17.5) gm/dL Hct 39.9 (39.0-53.0) % MCV 94.9 (80.0-100.0) fL MCH 30.7 (25.0-35.0) pg MCHC 32.4 (31.0-37.0) g/dL RDW 13.3 (11.5-15.5) % Plt Count 409 (150-450) k/uL MPV 7.6 Neutrophils % 70 % Lymphocytes % 18 % Monocytes % 8 % Eosinophils % 2 % Basophils % 1 % Neutrophils # 9.4 H (1.3-7.7) k/uL Lymphocytes # 2.4 (1.0-4.8) k/uL Monocytes # 1.0 (0-1.0) k/uL Eosinophils # 0.3 (0-0.7) k/uL Basophils # 0.1 (0-0.2) k/uL Sodium 139 (137-145) mmol/L Potassium 5.0 (3.5-5.1) mmol/L Chloride 109 H (98-107) mmol/L Carbon Dioxide 19 L (22-30) mmol/L Anion Gap 11 mmol/L BUN 42 H (9-20) mg/dL Creatinine 2.40 H (0.66-1.25) mg/dL Est GFR (CKD-EPI)AfAm 36 (>60 ml/min/1.73 sqM) Est GFR (CKD-EPI)NonAf 31 (>60 ml/min/1.73 sqM) Glucose 130 H (74-99) mg/dL Calcium 10.5 H (8.4-10.2) mg/dL Total Bilirubin 0.4 (0.2-1.3) mg/dL AST 16 L (17-59) U/L ALT 14 (4-49) U/L Alkaline Phosphatase 114 (38-126) U/L Total Protein 7.1 (6.3-8.2) g/dL Albumin 4.5 (3.5-5.0) g/dL Disposition Clinical Impression: Dysphagia, Submandibular lymphadenopathy Disposition: ADMITTED IP TO THIS [facility] Condition: Fair Decision Date: 10/12/20 Decision Time: 13:20
[2020-10-12 11:49] LABS: Basophils # (A) 0.1 k/uL (0-0.2); Basophils % (A) 1 %; Eosinophils # (A) 0.3 k/uL (0-0.7); Eosinophils % (A) 2 %; HCT 39.9 % (39.0-53.0); HGB 12.9 gm/dL (13.0-17.5); Lymphocytes # (A) 2.4 k/uL (1.0-4.8); Lymphocytes % (A) 18 %; MCH 30.7 pg (25.0-35.0); MCHC 32.4 g/dL (31.0-37.0); MCV 94.9 fL (80.0-100.0); Mean Platelet Volume 7.6; Monocytes % (A) 8 %; Neutrophils # (A) 9.4 k/uL (1.3-7.7); Neutrophils % (A) 70 %; Platelet Count 409 k/uL (150-450); RDW 13.3 % (11.5-15.5); WBC 13.4 k/uL (3.8-10.6)
[2020-10-12 12:06] LABS: Albumin 4.5 g/dL (3.5-5.0); Calcium 10.5 mg/dL (8.4-10.2); Total Bilirubin 0.4 mg/dL (0.2-1.3); Total Protein 7.1 g/dL (6.3-8.2)
--- NOTE | 2020-10-12 12:08 | XR ---
EXAMINATION TYPE: XR chest 2V DATE OF EXAM: 10/12/2020 COMPARISON: NONE TECHNIQUE: PA and lateral views submitted. HISTORY: Cough FINDINGS: The lungs are clear and there is no pneumothorax, pleural effusion, or focal pneumonia. Heart size normal. No overt failure. Nodules overlying the lower chest stable from prior exam likely related to nipple shadows. Hypertrophic and degenerative changes spine. Mild hyperinflation correlate for asthma or COPD. Surgical clips in the abdomen. IMPRESSION: 1. No acute process.
--- NOTE | 2020-10-12 12:13 | CT ---
EXAMINATION TYPE: CT soft tissue neck wo con DATE OF EXAM: 10/12/2020 COMPARISON: None HISTORY: 45-year-old male Sore throat and difficulty swallowing. TECHNIQUE: Contiguous axial scanning of the soft tissues of the neck without IV contrast. Coronal and sagittal reconstructions performed. CT DLP: 275.3 mGycm Automated exposure control for dose reduction was used. FINDINGS: Leftward nasal septal deviation. Mild mucosal thickening floor of the right maxillary sinus. Mastoid air cells well pneumatized. Lack of IV contrast limits assessment of the cervical mucosal space, lymph nodes, and vascular struct ures. Allowing for noncontrast technique, nasopharynx appears clear. Bilateral lingual tonsillar hypertrophy. Oropharynx otherwise grossly clear. Glottic and subglottic airway as well as the tracheal column and visualized upper lungs appear clear. Epiglottis and prevertebral soft tissues are satisfactory. Thyroid gland, submandibular glands, and parotid glands are satisfactory. There are mildly enlarged lymph nodes in the upper neck, particularly, the submandibular regions nelson uring up to 1.1 cm and station 2A measuring up to 1.4 cm (sagittal image 27). These lymph nodes are r elatively symmetric. Moderate degenerative disc disease C5-C6 with disc osteophyte complex impressing on the ventral theca l sac. IMPRESSION: MILDLY ENLARGED UPPER NECK LYMPH NODES IN THE SUBMANDIBULAR AND STATION 2A LEVELS MEASURING UP TO 1.4 CM. THESE ARE PROBABLY REACTIVE/POST INFLAMMATORY AND CLINICAL FOLLOW-UP IS RECOMMENDED. IF THE NODE S PERSIST OR INCREASE IN SIZE, THE AREA CAN BE REASSESSED WITH ULTRASOUND AND TISSUE SAMPLING CAN BE CONSIDERED.
[2020-10-12] MEDS ORDERED: MORPHINE SULFATE 2 MG/ML SYRINGE IVP ONE (12:49)
[2020-10-12] MEDS ORDERED: PIPERACILLIN-TAZOBACTAM 3.375 GM in SODIUM CHLORIDE 0.9% 100 ML IVPB STA (13:19)
[2020-10-12] MEDS ORDERED: ACETAMINOPHEN TAB 325 MG TAB PO PRN (13:52)
[2020-10-12] MEDS ORDERED: NALOXONE 0.4 MG/ML 1 ML VIAL IV PRN (13:52)
[2020-10-12] MEDS ORDERED: MORPHINE SULFATE 4 MG/ML SYRINGE IV PRN (13:52)
[2020-10-12] MEDS ORDERED: HYDROcodone/APAP 7.5-325MG 1 EACH TAB PO ONE (14:00)
--- NOTE | 2020-10-12 14:41 | P.HPIM ---
History of Present Illness Patient 43-year-old the posterior transplant came in with the complaints of dysphagia for 2 days and the swelling in the left side of the neck with tenderness. There is no significant redness in the posterior pharyngeal wallsignificant findings or secretions consistent with the strep throat, rapid strep test will be obtained. Patient does have to care these teeth on both sides on left-sided patient has the first caries molar. A soft tissue neck CT which did not show any evidence of submandibular abscess but there is lymphade nopathy in the submandibular area and enlarged left upper cervical lymphadenopathy. Patient used to smoke in the 3 months ago about half a pack a day. Does have history of COPD. Patient does have history of renal transplant and on immunosuppressive medications patient baseline creatinine is around 1.7 present creatinine is around 2.4 patient does have leukocytosis without any fever. REVIEW OF SYSTEMS: CONSTITUTIONAL: No fever, no malaise, no fatigue. HEENT: No recent visual problems or hearing problems. CARDIOVASCULAR: No chest pain, orthopnea, PND, no palpitations, no syncope. PULMONARY: No shortness of breath, no cough, no hemoptysis. GASTROINTESTINAL: No diarrhea, no nausea, no vomiting, no abdominal pain. NEUROLOGICAL: No headaches, no weakness, no numbness. HEMATOLOGICAL: Denies any bleeding or petechiae. GENITOURINARY: Denies any burning micturition, frequency, or urgency. MUSCULOSKELETAL/RHEUMATOLOGICAL: Denies any joint pain, swelling, or any muscle pain. ENDOCRINE: Denies any polyuria or polydipsia. The rest of the 14-point review of systems is negative. PHYSICAL EXAMINATION: GENERAL: The patient is alert and oriented x3, not in any acute distress. Well developed, well nourished. HEENT: Pupils are round and equally reacting to light. EOMI. No scleral icterus. No conjunctival pallor. Normocephalic, atraumatic. No pharyngeal erythema. No thyromegaly. Patient does have a left cervical lymphadenopathy. May have mild redness in the posterior pharyngeal wall. No edema redness in the sublingual area, [address] as mentioned above CARDIOVASCULAR: S1 and S2 present. No murmurs, rubs, or gallops. PULMONARY: Lateral diffuse rhonchi with mild expiratory as well as respiratory wheezing ABDOMEN: Soft, nontender, nondistended, normoactive bowel sounds. No palpable organomegaly. MUSCULOSKELETAL: No joint swelling or deformity. EXTREMITIES: No cyanosis, clubbing, or pedal edema. NEUROLOGICAL: Gross neurological examination did not reveal any focal deficits. SKIN: No rashes. Assessment and plan -Dysphagia: Patient appears to oropharyngeal dysphagia ENT will be consulted for possible laryngoscopy. Patient was started on systemic steroids for inflammation which can help with dysphagia. Patient probably has a posterior soft tissue infection leading to lymphadenopathy. Patient started on Zosyn in the ER and patient was continued on this medication. -Leukocytosis due to assessment #1 - acute renal failure probably prerenal azotemia patient baseline creatinine appears to be around 1.7 stage III tonic kidney disease, patient is posterior transplant will be resumed on immunosuppressive therapy. -COPD with minimal exacerbation patient was started on relational treatments. -Hypertension - depression -DVT prophylaxis: The cutaneous heparin Past Medical History Past Medical History: Hypertension, Renal Disease Additional Past Medical History / Comment(s): colitis, 2 kidney transplants History of Any Multi-Drug Resistant Organisms: None Reported Past Surgical History: Tonsillectomy Additional Past Surgical History / Comment(s): fistula for dialysis/ removed kidney transplant Past Anesthesia/Blood Transfusion Reactions: No Reported Reaction Past Psychological History: Depression Smoking Status: Former smoker Past Alcohol Use History: Occasional Past Drug Use History: None Reported - Past Family History Mother Family Medical History: GERD/Reflux Additional Family Medical History / Comment(s): biological grandfather of heart issues (unsure of what) Medications and Allergies Home Medications Medication Instructions Recorded Confirmed Type amLODIPine [Norvasc] 10 mg PO DAILY #30 tab 01/04/18 10/12/20 Rx Carvedilol [Coreg] 25 mg PO BID 04/07/18 10/12/20 History Multivitamins, Thera [Multivitamin 1 tab PO DAILY 04/07/18 10/12/20 History (formulary)] Mycophenolate Sodium [Mycophenolic 720 mg PO BID 04/07/18 10/12/20 History Acid] Tacrolimus [Prograf] 2 mg PO DAILY 04/07/18 10/12/20 History lisinopriL [Zestril] 10 mg PO DAILY 04/07/18 10/12/20 History methylPREDNISolone [Medrol] 2 mg PO DAILY 10/19/18 10/12/20 History Magnesium Oxide [Mag-Ox] 400 mg PO DAILY 10/12/20 10/12/20 History Tacrolimus [Prograf] 1 mg PO HS 10/12/20 10/12/20 History Allergies Allergy/AdvReac Type Severity Reaction Status Date / Time prochlorperazine Allergy Unknown Verified 10/12/20 11:54 [From Compazine] Sulfa (Sulfonamide Allergy Anaphylaxis Verified 10/12/20 11:54 Antibiotics) Physical Exam Vitals: Vital Signs Temp Pulse Resp BP Pulse Ox 10/12/20 14:09 85 18 114/77 98 10/12/20 11:04 98.0 F 103 H 18 131/73 98 Intake and Output 10/11/20 10/12/20 10/12/20 22:59 06:59 14:59 Other: Weight 72.575 kg Results CBC & Chem 7: 10/12/20 11:36 10/12/20 11:36 Labs: Abnormal Lab Results - Last 24 Hours (Table) 10/12/20 10/12/20 Range/Units 11:36 11:36 WBC 13.4 H (3.8-10.6) k/uL RBC 4.20 L (4.30-5.90) m/uL Hgb 12.9 L (13.0-17.5) gm/dL Neutrophils # 9.4 H (1.3-7.7) k/uL Chloride 109 H (98-107) mmol/L Carbon Dioxide 19 L (22-30) mmol/L BUN 42 H (9-20) mg/dL Creatinine 2.40 H (0.66-1.25) mg/dL Glucose 130 H (74-99) mg/dL Calcium 10.5 H (8.4-10.2) mg/dL AST 16 L (17-59) U/L
[2020-10-12] MEDS: IPRATROPIUM-ALBUTEROL 3 ML NEB INHALATION PRN ×2 (15:12→19:50)
[2020-10-12] MEDS: carvediloL 12.5 MG TAB PO SCH (17:24)
[2020-10-12] MEDS: methylPREDNISolone SOD SUCCI 40 MG/ML 1 ML VIAL IV SCH ×2 (17:25→22:08)
[2020-10-12] MEDS: SODIUM CHLORIDE 0.9% 1,000 ML IV SCH (18:41)
[2020-10-12] MEDS: MYCOPHENOLATE SODIUM DR 180 MG TABLET.DR PO SCH (19:25)
[2020-10-12] MEDS: TACROLIMUS 1 MG CAP PO SCH (19:25)
[2020-10-13] MEDS: SODIUM CHLORIDE 0.9% 1,000 ML IV SCH (01:59)
[2020-10-13] MEDS: carvediloL 12.5 MG TAB PO SCH ×2 (07:32→17:51)
[2020-10-13] MEDS: methylPREDNISolone SOD SUCCI 40 MG/ML 1 ML VIAL IV SCH ×2 (07:32→19:49)
[2020-10-13] MEDS: MAGNESIUM OXIDE 400 MG TAB PO SCH (07:32)
[2020-10-13] MEDS: MULTIVITAMINS, THERA 1 EACH TAB PO SCH (07:32)
[2020-10-13] MEDS: amLODIPine 10 MG TAB PO SCH (07:33)
[2020-10-13] MEDS: MYCOPHENOLATE SODIUM DR 180 MG TABLET.DR PO SCH ×2 (07:33→19:50)
[2020-10-13] MEDS: TACROLIMUS 1 MG CAP PO SCH ×2 (07:33→19:50)
[2020-10-13] MEDS: IPRATROPIUM-ALBUTEROL 3 ML NEB INHALATION PRN ×2 (07:47→17:33)
[2020-10-13] MEDS ORDERED: methylPREDNISolone 4 MG TAB PO SCH (09:00)
[2020-10-13 09:19] LABS: HCT 36.8 % (39.6-50.0); HGB 11.6 g/dL (13.0-17.0); MCH 29.8 pg (27.0-32.0); MCHC 31.5 g/dL (32.0-37.0); MCV 94.6 fL (80.0-97.0); Mean Platelet Volume 10.2 fL (9.5-12.2); Platelet Count 403 X 10*3/uL (140-440); RBC 3.89 X 10*6/uL (4.40-5.60); RDW 12.9 % (11.5-14.5); WBC 11.46 X 10*3/uL (4.50-10.00)
[2020-10-13] MEDS: HYDROcodone/APAP 5-325MG 1 EACH TAB PO PRN ×3 (09:41→21:45)
[2020-10-13 10:08] LABS: African American GFR (CKD) 45.4 (60.0-200.0); Anion Gap 8.4 mmol/L (4.00-12.00); BUN/Creat Ratio 18.5 Ratio (12.00-20.00); Calcium 10.1 mg/dL (8.7-10.3); Carbon Dioxide 16.6 mmol/L (21.6-31.8); Non-African American GFR(CKD) 39.1 (60.0-200.0); Potassium 5.2 mmol/L (3.5-5.5)
--- NOTE | 2020-10-13 13:06 | P.PN ---
Subjective Patient 43-year-old the posterior transplant came in with the complaints of dysphagia for 2 days and the swelling in the left side of the neck with tenderness. There is no significant redness in the posterior pharyngeal wallsignificant findings or secretions consistent with the strep throat, rapid strep test will be obtained. Patient does have to care these teeth on both sides on left-sided patient has the first caries molar. A soft tissue neck CT which did not show any evidence of submandibular abscess but there is lymphadenopathy in the submandibular area and enlarged left upper cervical lymphadenopathy. Patient used to smoke in the 3 months ago about half a pack a day. Does have history of COPD. Patient does have history of renal transplant and on immunosuppressive medications patient baseline creatinine is around 1.7 present creatinine is around 2.4 patient does have leukocytosis without any fever. 10/13/2020 Patient does have improvement in his a swelling pain. ENT a to evaluate the patient patient will be continued on present antibiotics PHYSICAL EXAMINATION: GENERAL: The patient is alert and oriented x3, not in any acute distress. Well developed, well nourished. HEENT: Pupils are round and equally reacting to light. EOMI. No scleral icterus. No conjunctival pallor. Normocephalic, atraumatic. No pharyngeal erythema. No thyromegaly. Patient does have a left cervical lymphadenopathy. May have mild redness in the posterior pharyngeal wall. No edema redness in the sublingual area, [address] as mentioned above CARDIOVASCULAR: S1 and S2 present. No murmurs, rubs, or gallops. PULMONARY: Lateral diffuse rhonchi with mild expiratory as well as respiratory wheezing ABDOMEN: Soft, nontender, nondistended, normoactive bowel sounds. No palpable organomegaly. MUSCULOSKELETAL: No joint swelling or deformity. EXTREMITIES: No cyanosis, clubbing, or pedal edema. NEUROLOGICAL: Gross neurological examination did not reveal any focal deficits. SKIN: No rashes. Assessment and plan -Dysphagia: Patient appears to oropharyngeal dysphagia ENT will be consulted for possible laryngoscopy. Patient was started on systemic steroids for inflammation which can help with dysphagia. Patient probably has a posterior soft tissue infection leading to lymphadenopathy. Patient started on Zosyn in the ER and patient was continued on this medication. -Leukocytosis due to assessment #1 - acute renal failure probably prerenal azotemia patient baseline creatinine appears to be around 1.7 stage III tonic kidney disease, patient is posterior transplant will be resumed on immunosuppressive therapy. -COPD with minimal exacerbation patient was started on relational treatments. -Hypertension - depression -DVT prophylaxis: The cutaneous heparin Objective - Vital Signs Vital signs: Vital Signs Temp 98.8 F 10/13/20 07:00 Pulse 96 10/13/20 08:02 Resp 16 10/13/20 08:00 BP 131/86 10/13/20 07:00 Pulse Ox 99 10/13/20 07:00 Intake & Output 10/12/20 10/13/20 10/13/20 18:59 06:59 18:59 Weight 72.575 kg Other: Voiding Method Toilet Toilet # Voids 2 - Labs CBC & Chem 7: 10/13/20 05:34 10/13/20 05:34 Labs: Abnormal Lab Results - Last 24 Hours (Table) 10/13/20 10/13/20 Range/Units 05:34 05:34 WBC 11.46 H (4.50-10.00) X 10*3/uL RBC 3.89 L (4.40-5.60) X 10*6/uL Hgb 11.6 L (13.0-17.0) g/dL Hct 36.8 L (39.6-50.0) % MCHC 31.5 L (32.0-37.0) g/dL Chloride 111 H (96-109) mmol/L Carbon Dioxide 16.6 L (21.6-31.8) mmol/L BUN 37.0 H (9.0-27.0) mg/dL Creatinine 2.0 H (0.6-1.5) mg/dL Est GFR (CKD-EPI)AfAm 45.4 L (60.0-200.0) Est GFR (CKD-EPI)NonAf 39.1 L (60.0-200.0) Glucose 160 H (70-110) mg/dL Microbiology - Last 24 Hours (Table) 10/12/20 13:41 Group A Strep Throat Culture - Preliminary Throat
--- NOTE | 2020-10-13 13:36 | CONS ---
CONSULTATION REASON FOR CONSULT: Renal failure. HISTORY OF PRESENT ILLNESS: Patient is a 45-year-old male with history of end-stage renal disease, status post renal transplant. Patient has had two renal transplants with his second transplant about 16 years ago from his sister, done at [facility]. He states that his baseline creatinine is about 1.8-1.9 mg/dL. The patient is maintained on tacrolimus and Myfortic along with 2 mg of prednisone daily. He was admitted to the hospital with complaints of difficulty in swallowing and pain and discomfort on the left side of his neck. He denied any fevers or chills. Neck CT scan done yesterday showed mildly enlarged lymph nodes in the upper neck, particularly in the submandibular regions. These appear to be reactive. Currently patient is awaiting ENT evaluation. Serum creatinine was 2.4 mg/dL on admission, currently down to 2.0. The patient is maintained on IV fluids. The patient did state that he had decreased oral intake for about 2-3 days prior to admission. PAST MEDICAL HISTORY: 1. 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 2. Hypertension. 3. Chronic kidney disease mineral bone disorder. PAST SURGICAL HISTORY: Tonsillectomy, AV fistula, which was eventually removed and renal transplant with removal of first kidney. SOCIAL HISTORY: The patient is a former smoker. No history of drug abuse or alcohol abuse. MEDICATIONS: Medications at home prior to admission, Coreg Norvasc, Myfortic, Prograf, Zestril, Medrol, magnesium. ALLERGIES: Include COMPAZINE, SULFA. PHYSICAL EXAMINATION: Patient is currently comfortable, awake, alert, oriented x3, not in any acute distress. Blood pressure is 131/86, heart rate 101 per minute, he is afebrile. Examination of the heart S1, S2. Examination of the lungs, bilateral breath sounds are heard. Abdomen is soft, nontender. Examination lower extremities shows no evidence of edema. [employer]ICE [employer]GER exam grossly intact. LAB: Show sodium 136, potassium 5.2, chloride 111, CO2 is 16.6, BUN 37, creatinine 2.0, hemoglobin 11.6, white cell count 11.46. ASSESSMENT: 1. Acute kidney injury, prerenal, currently improving with IV hydration. 2. Metabolic acidosis associated with CKD and IV fluids. Change IV fluids to IV bicarb. 3. Status post living-related renal allograft about 16 years ago, maintained on tacrolimus, Myfortic, and prednisone. Check Prograf level in a.m. 4. Dysphagia with reactive lymphadenopathy noted in the left neck area with possibility of retropharyngeal infection, currently awaiting ENT evaluation. 5. Hypertension, maintained on Norvasc and Coreg. PLAN: Continue with IV fluids. Change to IV bicarb. Check Prograf level in a.m. Continue empiric antibiotics. Continue current dose of immunosuppressive medications. Thank you for this consultation. We will continue to follow the patient with you during his hospitalization. MMODL / IJN: [id number] /
[2020-10-13] MEDS: DEXTROSE 5% IN WATER 1,000 ML with SODIUM BICARB (1 MEQ/ML) 150 ML IV SCH (15:15)
[2020-10-13] MEDS: CEPHALEXIN 500 MG CAP PO SCH (19:49)
--- NOTE | 2020-10-13 20:44 | CONS ---
CONSULTATION DATE OF THE CONSULTATION: 10/13/2020. REASON FOR CONSULTATION: Dysphagia. HISTORY OF PRESENT ILLNESS: The patient is a very pleasant 45-year-old male who was admitted via the [facility] for further evaluation of complaints of dysphagia. The patient states that approximately 3 or 4 days prior to being admitted to the hospital, he began experiencing increasing difficulty swallowing solid foods. He denies any difficulty handling his own secretions or liquids. If he tries to drink highly carbonated beverages, such as Vernors, it sometimes comes through his nose. He quit smoking approximately 2-3 months ago. At that time, he was smoking anywhere from 1/2 to 1 pack of cigarettes per day. The patient is also a recipient of a kidney transplant approximately 3 years ago and has been on immunosuppressive medications including daily steroids. At the time that he was seen in the emergency room, he was afebrile. He was not having any complaints of soreness in his throat. He had a tonsillectomy as a child. He denies referred otalgia or pain on swallowing. A CT scan was performed in the ER room and it only showed moderate enlarged lymph nodes/lymphadenopathy in the left cervical chain. There were no suspicious neck masses or enlargement of any of the major salivary glands. The patient was given a single IV injection of an antibiotic( Zosyn?) and he was admitted. At the present time, the patient is in no acute distress. He is able to eat a soft diet. He denies any significant weight loss or change in bowel habits. He is afebrile. His lab work shows a moderate leukocytosis, 13.4. He admits to having numerous carious teeth, which he plans on getting extracted at the end of this month. His plan is to get a set of dentures. PAST MEDICAL HISTORY: ALLERGIES TO SULFA AND COMPAZINE. His current medications include Coreg, lisinopril, Amlodipine, Prograf, Medrol tablet daily, and Zestril. He is on various immunosuppressive medications for his kidney transplant. There is no history of diabetes mellitus. REVIEW OF SYSTEMS: Cardiovascular is positive for hypertension. The remainder of the review of systems is essentially unremarkable. PHYSICAL EXAMINATION: This patient is a 45-year-old male who is alert, cooperative, well-oriented to time and place. He is in no acute distress or discomfort at this time. HEENT examination patient is normocephalic. Tympanic membranes normal. Middle ear spaces are free of any fluid or infection. Pupils equal, round, react to light and accommodation. Extraocular movements within normal limits. Intranasal examination reveals moderate septal deviation with moderate bilateral hypertrophy of the inferior turbinates. There is clear mucus on the mucous membranes and draining down the posterior pharynx. Examination of oropharynx reveals an absence of tonsils but there is no evidence of any erythema, injection, swelling or tenderness of the pharynx or posterior pharyngeal wall. The patient has multiple carious teeth, but no evidence of any abscesses. In addition to this, the remaining teeth that the patient has have a heavy coating of plaque. Palpation of the neck reveals slight anterior cervical adenopathy which is nontender and mobile. This is confined to the left anterior cervical chain. There is no evidence of any neck masses or lymphadenopathy. Laryngoscopy is not possible at hospital bedside. Cranial nerves 2 through 12 and the remainder of the head and neck exam, head and neck exam are within normal limits. Chest/cardiovascular: Both lung guevara are clear to percussion and auscultation. The patient's lung sounds are somewhat distant at the bases, but no evidence of any rales, rhonchi, wheezes. The patient is in regular sinus rhythm S1, S2 are present without evidence any murmurs, S3s or S4. Peripheral pulses are bilaterally symmetrical. ABDOMEN: There is no evidence any masses megaly or tenderness. Abdomen: Soft. Skin is unremarkable. Musculoskeletal, neurological remainder of the physical exam is unremarkable. IMPRESSION: Dysphagia, etiology? Esophageal disorder (spasm), acid reflux,?, esophageal dysmotility, presbyesophagus,?, lastly tumor/mass (unlikely). PLAN: The best course of action with this patient would be for him to get a barium swallow. However, this procedure is not available on weekends and I do not feel it would be appropriate to have this patient remain in the hospital until next week simply to have a barium swallow. At this point, I am not able to do any type of laryngoscopy at the hospital bedside. Certainly, I do not feel that this gentleman would warrant being taken to surgery and subjected to a general anesthetic to do a direct laryngoscopy, especially with a negative CT neck scan. He is a well known patient at [facility] and therefore I have advised him to contact his transplant doctor/surgeon. I advised the patient that he should make the physician aware of his symptoms of dysphagia and mention that I (Dr. Larios), had suggested the patient have a barium swallow as a starting point for evaluating his difficulty with swallowing. He has in the past been on acid reflux medicine but this was stopped for some reason. I have recommended to him that until he is further evaluated that he should restrict himself to a liquid or soft diet. I also encouraged him to remain off cigarettes/tobacco products. As a transplant plan patient [facility], he will certainly be put on a fast track to be seen and evaluated. I will be going on vacation and will be out of my office starting Thursday10/15/2020. I will be gone for approximately 2 weeks. All of the patient's questions were answered in the presence of his nurse. From a HEENT standpoint, I think the patient can be discharged home tomorrow. I would suggest that he prophylactically be put on oral antibiotics of Keflex 500 mg p.o. b.i.d. for 10 days, mainly because of his poor state of dentition. My concern is about him potentially developing an infection due to his multiple carious teeth. Finally, with respect to his leukocytosis, it was difficult to determine whether or not that might be secondary to a bacterial/viral process or simply due to the fact that he is on steroids (Medrol) on a regular basis. I feel his symptoms or lack thereof justify in discharging him to home tomorrow with the understanding that he will follow up at [facility]. I want to take this opportunity to thank you for allowing me to assist in the care of your patient. If I could be of any further assistance, please feel free to call my office. MEY / UMBERTO: [id number] / GUY
[2020-10-14] MEDS: DEXTROSE 5% IN WATER 1,000 ML with SODIUM BICARB (1 MEQ/ML) 150 ML IV SCH (03:55)
[2020-10-14] MEDS: methylPREDNISolone SOD SUCCI 40 MG/ML 1 ML VIAL IV SCH (07:14)
[2020-10-14] MEDS: amLODIPine 10 MG TAB PO SCH (07:15)
[2020-10-14] MEDS: MAGNESIUM OXIDE 400 MG TAB PO SCH (07:15)
[2020-10-14] MEDS: MULTIVITAMINS, THERA 1 EACH TAB PO SCH (07:15)
[2020-10-14] MEDS: TACROLIMUS 1 MG CAP PO SCH (07:15)
[2020-10-14] MEDS: CEPHALEXIN 500 MG CAP PO SCH (07:15)
[2020-10-14] MEDS: carvediloL 12.5 MG TAB PO SCH (07:15)
[2020-10-14] MEDS: MYCOPHENOLATE SODIUM DR 180 MG TABLET.DR PO SCH (07:16)
[2020-10-14] MEDS: HYDROcodone/APAP 5-325MG 1 EACH TAB PO PRN (07:22)
[2020-10-14 07:26] VITALS: BP 151/82; PULSE 82; RESP 18; TEMP 98.4
[2020-10-14 09:36] LABS: HCT 31.8 % (39.6-50.0); HGB 10.2 g/dL (13.0-17.0); MCH 30.4 pg (27.0-32.0); MCHC 32.1 g/dL (32.0-37.0); MCV 94.9 fL (80.0-97.0); Mean Platelet Volume 10.4 fL (9.5-12.2); Platelet Count 342 X 10*3/uL (140-440); RBC 3.35 X 10*6/uL (4.40-5.60); RDW 12.9 % (11.5-14.5); WBC 13.97 X 10*3/uL (4.50-10.00)
[2020-10-14 10:00] LABS: African American GFR (CKD) 55.2 (60.0-200.0); Anion Gap 7.1 mmol/L (4.00-12.00); BUN/Creat Ratio 21.18 Ratio (12.00-20.00); Carbon Dioxide 19.9 mmol/L (21.6-31.8); Non-African American GFR(CKD) 47.6 (60.0-200.0)
--- NOTE | 2020-10-14 11:54 | P.DS ---
Providers Date of admission: 10/12/20 13:20 Expected date of discharge: 10/14/20 Attending physician: Marco Romero MD Consults: 10/12/20 14:02 Consult Physician Routine Consulting Provider: Brody Coughlin Consult Reason/Comments: FINN, Renal transplant Do you want consulting provider notified?: Yes 10/12/20 14:26 Consult Physician Routine Consulting Provider: Chris Larios Consult Reason/Comments: Oral Pharyngeal Dysphagia Do you want consulting provider notified?: Yes Primary care physician: [facility] Course: Patient 43-year-old the posterior transplant came in with the complaints of dysphagia for 2 days and the swelling in the left side of the neck with tenderness. There is no significant redness in the posterior pharyngeal wallsignificant findings or secretions consistent with the strep throat, rapid strep test will be obtained. Patient does have to care these teeth on both sides on left-sided patient has the first caries molar. A soft tissue neck CT which did not show any evidence of submandibular abscess but there is lymphadenopathy in the submandibular area and enlarged left upper cervical lymphadenopathy. Patient used to smoke in the 3 months ago about half a pack a day. Does have history of COPD. Patient does have history of renal transplant and on immunosuppressive medications patient baseline creatinine is around 1.7 present creatinine is around 2.4 patient does have leukocytosis without any fever. 10/13/2020 Patient does have improvement in his a swelling pain. ENT a to evaluate the patient patient will be continued on present antibiotics 10/14/2020 Patient seen on follow-up having minimal pharyngeal pain, he is on modified dysphagia level III diet, tolerating. Creatinine 1.7, down from 2.0, still a bit acidotic bicarb 19.9, receiving bicarb infusion and Hospital he'll need to continue on oral bicarb at discharge. He is on antimicrobial therapy with Keflex, no fever. Hemodynamically stable. Constitutional: Denied, patient has been any fatigue denied any fever. Cardio vascular: denied any chest pain, palpitations Gastrointestinal denied any nausea vomiting Pulmonary: Denied any shortness of breath cough Neurologic denied any new focal deficits PHYSICAL EXAMINATION: GENERAL: The patient is alert and oriented x3, not in any acute distress. Well developed, well nourished. HEENT: Pupils are round and equally reacting to light. EOMI. No scleral icterus. No conjunctival pallor. Normocephalic, atraumatic. No pharyngeal erythema. No thyromegaly. Patient does have a left cervical lymphadenopathy. May have mild redness in the posterior pharyngeal wall. No edema redness in the sublingual area, [address] as mentioned above CARDIOVASCULAR: S1 and S2 present. No murmurs, rubs, or gallops. PULMONARY: Lateral diffuse rhonchi with mild expiratory as well as respiratory wheezing ABDOMEN: Soft, nontender, nondistended, normoactive bowel sounds. No palpable organomegaly. MUSCULOSKELETAL: No joint swelling or deformity. EXTREMITIES: No cyanosis, clubbing, or pedal edema. NEUROLOGICAL: Gross neurological examination did not reveal any focal deficits. SKIN: No rashes. Assessment and plan -Dysphagia: Most probably secondary to posterior soft tissue infection of pharyngeal area waiting to lymphadenopathy. Patient was delivered by ENT, no inpatient laryngoscopy. H. continue on antimicrobial therapy with Keflex x 10 days to complete course of discharge. Continue on modified dysphagia diet. And will give course of steroids with Medrol Dosepak. Can follow-up with ENT at [facility] or locally. -Leukocytosis: Secondary to above - acute renal failure patient is most probably secondary to prerenal azotemia, now improved. Patient does have history of chronic kidney disease stage III with baseline creatinine 1.7, and has history of kidney transplant for which she is continued on immunosuppressive therapy. 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 Muñiz outpatient setting to establish primary care provider. Patient Condition at Discharge: Fair Plan - Discharge Summary Discharge Rx Participant: Yes New Discharge Prescriptions: New Cephalexin [Keflex] 500 mg PO TID #21 cap Sodium Bicarbonate Tab 650 mg PO TID #90 tablet methylPREDNISolone Dose Pack [Medrol Dose Pack] 4 mg PO DIRECTED #21 package Continue amLODIPine [Norvasc] 10 mg PO DAILY #30 tab Multivitamins, Thera [Multivitamin (formulary)] 1 tab PO DAILY Mycophenolate Sodium [Mycophenolic Acid] 720 mg PO BID lisinopriL [Zestril] 10 mg PO DAILY Carvedilol [Coreg] 25 mg PO BID Tacrolimus [Prograf] 2 mg PO DAILY methylPREDNISolone [Medrol] 2 mg PO DAILY Magnesium Oxide [Mag-Ox] 400 mg PO DAILY Tacrolimus [Prograf] 1 mg PO HS Discharge Medication List amLODIPine [Norvasc] 10 mg PO DAILY #30 tab 01/04/18 [Rx] Carvedilol [Coreg] 25 mg PO BID 04/07/18 [History] Multivitamins, Thera [Multivitamin (formulary)] 1 tab PO DAILY 04/07/18 [History] Mycophenolate Sodium [Mycophenolic Acid] 720 mg PO BID 04/07/18 [History] Tacrolimus [Prograf] 2 mg PO DAILY 04/07/18 [History] lisinopriL [Zestril] 10 mg PO DAILY 04/07/18 [History] methylPREDNISolone [Medrol] 2 mg PO DAILY 10/19/18 [History] Magnesium Oxide [Mag-Ox] 400 mg PO DAILY 10/12/20 [History] Tacrolimus [Prograf] 1 mg PO HS 10/12/20 [History] Cephalexin [Keflex] 500 mg PO TID #21 cap 10/14/20 [Rx] Sodium Bicarbonate Tab 650 mg PO TID #90 tablet 10/14/20 [Rx] methylPREDNISolone Dose Pack [Medrol Dose Pack] 4 mg PO DIRECTED #21 package 10/14/20 [Rx] Follow up Appointment(s)/Referral(s): Ernie Muñiz MD [STAFF PHYSICIAN] - 3 Days Chris Larios MD [STAFF PHYSICIAN] - 1 Week Discharge Disposition: HOME SELF-CARE
--- NOTE | 2020-10-14 12:05 | PN ---
PROGRESS NOTE Patient is seen for followup for acute kidney injury mostly prerenal associated with underlying CKD and status post renal transplantation. The patient was admitted with discomfort on the left side of his neck and dysphagia. CT scan has shown some reactive lymphadenopathy. Patient was evaluated by ENT and barium swallow has been recommended. He is currently maintained on IV fluids. Renal function has improved with creatinine down from 2.4 to 1.7 which is about his baseline. Currently patient is maintained on IV bicarb. PHYSICAL EXAMINATION: On examination today, blood pressure 151/82, heart rate 82 per minute. He is afebrile. Examination of the heart S1, S2. Examination of the lungs, decreased breath sounds at bases. Abdomen is soft, nontender. Examination of lower extremities shows no evidence of edema and a mild swelling and discomfort noted on the left side of the neck. [employer] exam grossly intact. LAB: Show sodium 135, potassium 5.0, chloride 108, CO2 is 19, BUN 36, creatinine 1.7, hemoglobin 10.2 g/dL. ASSESSMENT: 1. Acute kidney injury prerenal currently improved with IV hydration. 2. 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 Renal function currently back at baseline, maintained on Prograf, Myfortic, and prednisone. 3. Status post living related renal transplant about 15 years ago. Baseline creatinine 1.8-1.9 per patient. 4. Chronic kidney disease, mineral bone disorder. 5. Dysphagia with reactive lymphadenopathy. Barium swallow has been recommended by ENT. 6. Hypertension. Continue with Norvasc and Coreg. 7. Metabolic acidosis currently improved with IV bicarb. PLAN: Continue with IV hydration until patient is able to eat. He needs to maintain close followup as outpatient with Transplant and ENT. MMODL / IJN: [id number] /
== END 2020-10-14 11:58 | disposition home or self-care (01) ==
LOC: EC 11:03 → 6NMEDSUR 13:20
PROVIDERS: ADMIT Internal Medicine; ATTEND Internal Medicine
DX: R13.12 Dysphagia, oropharyngeal phase (principal); L08.9 Local infection of the skin and subcutaneous tissue, unspecified; R59.0 Localized enlarged lymph nodes; N17.9 Acute kidney failure, unspecified; D72.829 Elevated white blood cell count, unspecified; E87.2 Acidosis; J44.9 Chronic obstructive pulmonary disease, unspecified; I12.0 Hypertensive chronic kidney disease with stage 5 chronic kidney disease or end stage renal disease; N18.30 Chronic kidney disease, stage 3 unspecified; T86.19 Other complication of kidney transplant; F32.9 Major depressive disorder, single episode, unspecified; K02.9 Dental caries, unspecified; M89.9 Disorder of bone, unspecified; J34.2 Deviated nasal septum; Z79.52 Long term (current) use of systemic steroids; Z79.01 Long term (current) use of anticoagulants; Z79.899 Other long term (current) drug therapy; Z79.810 Long term (current) use of selective estrogen receptor modulators (SERMs); Z79.811 Long term (current) use of aromatase inhibitors; Z88.6 Allergy status to analgesic agent; Z88.2 Allergy status to sulfonamides; N13.9 Obstructive and reflux uropathy, unspecified; Z87.891 Personal history of nicotine dependence; Z87.19 Personal history of other diseases of the digestive system; Z83.79 Family history of other diseases of the digestive system
CPT/HCPCS: 99284; 96376 ×3; 96361 ×3; 96365; 96366; 96375 ×2; 36415; 94640 ×4; 80053; 80048 ×2; 80197; 85025; 85027 ×2; 87040; 87081; 87430; 71046; 70490; G0378 ×3; J2543; J2920 ×3; J7507 ×3; J2270; J7518 ×3